=== PATIENT | female | born 1995 | race Caucasian/White ===

== ENCOUNTER 2017-12-08 20:28 | Outpatient (CLI) | payer OTHER ==
[2017-12-08] MEDS ORDERED: LACTATED RINGERS 1,000 ML IV SCH (21:00)
[2017-12-08 21:09] VITALS: BP 121/57; PULSE 81; RESP 16; TEMP 96.1
[2017-12-08 21:09] LABS: Amorphous Sediment,Urine Rare /hpf; Appearance,Urine Cloudy (Clear); Bacteria,Urine Moderate /hpf; Bilirubin,Urine Negative (Negative); Blood,Urine Negative (Negative); Calcium Oxalate Crystals,Urine Occasional /hpf; Color,Urine Yellow; Glucose,Urine (UA) Negative (Negative); Ketones,Urine 3+ (Negative); Leukocyte Esterase,Urine Trace (Negative); Mucus,Urine Many /hpf; Nitrite,Urine Negative (Negative); Protein,Urine Trace (Negative); RBC,Urine 22 /hpf (0-5); Specific Gravity,Urine 1.023 (1.001-1.035); Squamous Epithelial Cell,Urine 8 /hpf (0-4); Urobilinogen,Urine <2.0 mg/dL (<2.0); WBC,Urine 10 /hpf (0-5)
[2017-12-08] MEDS ORDERED: ceFAZolin 1,000 MG in DEXTROSE/WATER 1 50ML.BAG IVPB STA (21:25)
[2017-12-08] MEDS ORDERED: CLINDAMYCIN 600 MG in DEXTROSE 5% IN WATER 50 ML IVPB STA ×2 (21:31)
[2017-12-08] MEDS ORDERED: NITROFURANTOIN MONOHYD/M-CRYST 100 MG CAP PO STA (21:41)
--- NOTE | 2017-12-10 08:05 | P.MSEPDOC ---
Presenting Problems - Arrival Data Date of Arrival on Unit: 12/08/17 Time of Arrival on Unit: 20:28 Mode of Transport: Ambulatory - Complaint OB-Reason for Admission/Chief Complaint: Acute Nausea/Vomiting Medical History - Information : 1 Para: 0 Term: 0 : 0 Abortions: Spontaneous or Elective: 0 Number of Living Children: 0 - Gestational Age Gestational Age by EVELYN (wks/days): 24 Weeks and 1 Days Review of Systems - Review of Systems Constitutional: No problems Breast: No problems ENT: No problems Cardiovascular: No problems Respiratory: No problems Gastrointestinal: Diarrhea Genitourinary: No problems Musculoskeletal: No problems Neurological: No problems Skin: No problems Vital Signs - Temperature Temperature: 96.1 F Temperature Source: Temporal Artery Scan - Pulse Right Brachial Pulse Rate: 81 Pulse Assessment Method: Automatic Cuff - Respirations Respiratory Rate: 16 Oxygen Delivery Method: Room Air - Blood Pressure Right Arm Blood Pressure: 121/57 Blood Pressure Mean: 78 Blood Pressure Source: Automatic Cuff Medical Screen Scoring (Pre) - Cervical Exam Dilation: Exam Deferred Effacement: Exam Deferred Membranes: Intact - Uterine Contractions Frequency: N/A Duration: N/A Intensity: N/A - Maternal Vital Signs Maternal Temperature: N/A Maternal Blood Pressure: N/A Signs of Preeclampsia: N/A - Pain Assessment Pain Location and Character: Right, Lower, Abdomen Pain Scale Used: Numeric (1 - 10) Pain Intensity: 3 Pain Description: Cramping Pain Frequency: Intermittent Pain Duration Units: Minutes Pain Behavior: None Exhibited - Maternal Trauma Maternal Trauma: N/A - Assessment Baseline FHR: 150 Heart Rate - NICHD Category: Category I (Normal) = 0 NST: Reactive Position: N/A Station: N/A - Total Score Total Score (Pre): 0 - Level of Risk Level of Risk: Low (0-5) Physician Notification (Pre) - Physician Notified Physician Notified Date: 12/08/17 Physician Notified Time: 21:43 Spoke With: Dr. Couch - Notification Comment Comment: Orders recieved to administer 100 mg macrobid tablet and to d/c pt to home. Disposition - Disposition OB Disposition: Discharge to home Discharge Date: 12/08/17 Discharge Time: 21:58 I agree with the RN Medical Screening Exam: Yes Risk & Benefit of care provided described in d/c instruction: Yes Diagnosis: RELATED CONDITIONS, UNSPECIFIED, SECOND TRIMESTER
== END 2017-12-08 21:59 | disposition home or self-care (01) ==
LOC: FBPOP 20:28
PROVIDERS: ATTEND Obstetrics & Gynecology
DX: O21.2 Late vomiting of pregnancy (principal); Z3A.24 24 weeks gestation of pregnancy
CPT/HCPCS: 81001; 96360; 99214

== ENCOUNTER 2018-03-10 15:25 | Inpatient (IN) | payer OTHER ==
[2018-03-10] MEDS ORDERED: DINOPROSTONE 10 MG INSERT.ER VAGINAL ONE (16:35)
[2018-03-10 16:39] VITALS: BMI 21.9
--- NOTE | 2018-03-10 16:59 | P.HPOB ---
History of Present Illness H&P Date: 03/10/18 Chief Complaint: Intrauterine at term: Oligohydramnios Patient is a 24 to at 37 weeks gestation who arrives to labor and delivery for Cervidil ripening and induction of labor due to oligohydramnios. She's had low amniotic fluid now for several weeks and was seen by maternal- medicine. Her YEIMI is now less than 5 and her baby is measuring small for dates. Out of abundance of caution will plan induction of labor for same. Risks/benefits alternatives to induction of labor and Cervidil ripening discussed with the patient in detail and she is aware of increased risk for C- section with this type procedure as well as possible need for emergent section. All the questions were answered for her and her this time. She had no other gross problems with the and as a transfer to [facility]. She has a category 1 tracing now and had a category 1 tracing in the office with a reactive nonstress test. Her Precis course otherwise was generally unremarkable. Assessment intrauterine at term. Unripened cervix. Plan Cervidil ripening with induction in a.m. Past Medical History Past Medical History: No Reported History Additional Past Medical History / Comment(s): joint pain since may, kidney stones History of Any Multi-Drug Resistant Organisms: None Reported Past Surgical History: Orthopedic Surgery Additional Past Surgical History / Comment(s): arthroscopy both knees, cystoscopy Past Anesthesia/Blood Transfusion Reactions: No Reported Reaction Past Psychological History: Anxiety Smoking Status: Never smoker Past Alcohol Use History: Rare Additional Past Alcohol Use History / Comment(s): has smoked occasionally for 3 yrs. Past Drug Use History: Marijuana Additional Drug Use History / Comment(s): occasional use couple times per week - Past Family History Mother Family Medical History: Hypertension Medications and Allergies Home Medications Medication Instructions Recorded Confirmed Type Pnv No.95/Ferrous Fum/Folic AC 1 tab PO ONCE 12/08/17 03/10/18 History [ Multivitamin Tablet] Allergies Allergy/AdvReac Type Severity Reaction Status Date / Time cefazolin [From Kefzol] Allergy Swelling Verified 03/10/18 16:34 Exam Osteopathic Statement: *. No significant issues noted on an osteopathic structural exam other than those noted in the History and Physical/Consult. Vital Signs Temp Pulse Resp BP Pulse Ox 03/10/18 16:37 97.2 F L 97 16 129/75 98 Intake and Output 03/10/18 03/10/18 03/10/18 06:59 14:59 22:59 Other: Weight 63.503 kg - OBG Physical Exam Breast: both: normal (no masses) Abdomen: bowel sounds normal, no diffuse tenderness, no bruit present, no guarding noted, no hepatomegaly, no splenomegaly, no mass Vulva: both: normal Vagina: normal moisture, no discharge Cervix: no lesion, no discharge Uterus: normal size, normal contour Adnexa: both: normal Anus/Rectum: normal perianal skin, no rectal mass, no hemorrhoids, heme negative
[2018-03-10] MEDS ORDERED: TERBUTALINE 1 MG/ML VIAL SQ PRN (22:12)
[2018-03-10] MEDS ORDERED: OXYTOCIN 20 UNITS/1000 ML NS 1,000 ML IV SCH (22:12)
[2018-03-10] MEDS ORDERED: METHYLERGONOVINE 0.2 MG/ML 1 ML AMP IM PRN (22:12)
[2018-03-10] MEDS ORDERED: LIDOCAINE 0.5% (PF) 5 MG/ML (50 ML SDV) SQ PRN (22:12)
[2018-03-10] MEDS ORDERED: CARBOPROST TROMETHAMINE 250 MCG/ML 1 ML AMP IM PRN (22:12)
[2018-03-10] MEDS ORDERED: OXYTOCIN 10 UNIT/ML 1 ML VIAL IM PRN (22:12)
[2018-03-10] MEDS: BUTORPHANOL 1 MG/ML 1 ML VIAL IV PRN (22:42)
[2018-03-10 23:01] LABS: Basophils % (A) 0 %; Eosinophils # (A) 0.1 k/uL (0-0.7); Eosinophils % (A) 1 %; HCT 34.9 % (34.0-46.0); HGB 12.4 gm/dL (11.4-16.0); Lymphocytes # (A) 1.6 k/uL (1.0-4.8); Lymphocytes % (A) 24 %; MCH 31.9 pg (25.0-35.0); MCHC 35.6 g/dL (31.0-37.0); MCV 89.5 fL (80.0-100.0); Mean Platelet Volume 8.9; Monocytes # (A) 0.5 k/uL (0-1.0); Monocytes % (A) 8 %; Neutrophils # (A) 4.2 k/uL (1.3-7.7); Neutrophils % (A) 64 %; Platelet Count 181 k/uL (150-450); RDW 12.7 % (11.5-15.5); WBC 6.6 k/uL (3.8-10.6)
[2018-03-11] MEDS: BUTORPHANOL 1 MG/ML 1 ML VIAL IV PRN ×2 (02:06→08:23)
[2018-03-11] MEDS: LACTATED RINGERS 1,000 ML IV SCH ×3 (09:59→21:13)
[2018-03-11] MEDS ORDERED: ROPIVACAINE 100 MG, fentaNYL (PF) 200 MCG in SODIUM CHLORIDE 0.9% 76 ML EPIDURAL ONE (12:19)
[2018-03-11] MEDS ORDERED: SIMETHICONE 80 MG CHEWABLE PO PRN (13:32)
[2018-03-11] MEDS ORDERED: WITCH HAZEL 1 EACH MED..PAD TOPICAL PRN (13:32)
[2018-03-11] MEDS ORDERED: diphenhydrAMINE 50 MG CAP PO PRN (13:32)
[2018-03-11] MEDS ORDERED: ZOLPIDEM 5 MG TAB PO PRN (13:32)
[2018-03-11] MEDS ORDERED: LANOLIN CREAM 5 GM TUBE TOPICAL PRN (13:32)
[2018-03-11] MEDS ORDERED: BENZOCAINE/MENTHOL SPRAY 1 GM/SPRAY AEROSOL TOPICAL PRN (13:32)
[2018-03-11] MEDS ORDERED: MEASLES-MUMPS-RUBELLA VACC/PF 12,500 UNIT/0.5 ML VIAL SQ ONE (13:32)
[2018-03-11] MEDS ORDERED: diphenhydrAMINE 25 MG CAP PO PRN (13:32)
[2018-03-11] MEDS ORDERED: diphenhydrAMINE 50 MG/ML 1 ML VIAL IVP PRN ×2 (13:32)
[2018-03-11] MEDS ORDERED: HYDROCORTISONE 2.5% RECTAL CREAM 30 GM TUBE RECTAL PRN (13:32)
--- NOTE | 2018-03-11 13:34 | P.PROBDLV ---
Vaginal Delivery Note - . Vaginal Delivery Note: Patient progressed complete and pushed with spontaneous vaginal delivery of a viable female over an intact perineum. Falling deliver the head from essentially right occiput transverse or right occiput anterior asynclitic, the anterior posterior shoulders were easily delivered with gentle downward upper traction followed by the remainder the baby. Mouth nares were then bulb suctioned and baby was placed mother's abdomen where the umbilical cord was allowed to pulsate for approximately 45 seconds prior to clamping and cutting. Nursery personnel was present to assume care. Placenta was then delivered intact and Pitocin was added to the IV. Inspection of the vagina revealed a right labial laceration which was repaired with 3-0 Vicryl in a running fashion following 1% Xylocaine for analgesia. scores were 7 and 9 at one and 5 minutes Tony and weight was 5 lbs. 6 oz. both mother and baby are stable following delivery.
[2018-03-11] MEDS: IBUPROFEN 600 MG TAB PO PRN (19:03)
[2018-03-11] MEDS: ACETAMINOPHEN TAB 325 MG TAB PO PRN (23:59)
[2018-03-11] MEDS: SENNOSIDES-DOCUSATE SODIUM 1 EACH TAB PO SCH (23:59)
[2018-03-12] MEDS: IBUPROFEN 600 MG TAB PO PRN ×2 (08:25→15:17)
[2018-03-12] MEDS: SENNOSIDES-DOCUSATE SODIUM 1 EACH TAB PO SCH ×2 (08:26→22:59)
[2018-03-12 08:51] LABS: Basophils % (A) 0 %; Eosinophils # (A) 0.1 k/uL (0-0.7); Eosinophils % (A) 1 %; HCT 34.8 % (34.0-46.0); HGB 11.8 gm/dL (11.4-16.0); Lymphocytes # (A) 1.8 k/uL (1.0-4.8); Lymphocytes % (A) 20 %; MCH 31.1 pg (25.0-35.0); MCHC 33.9 g/dL (31.0-37.0); MCV 91.7 fL (80.0-100.0); Mean Platelet Volume 9.1; Monocytes # (A) 0.6 k/uL (0-1.0); Monocytes % (A) 6 %; Neutrophils # (A) 6.4 k/uL (1.3-7.7); Neutrophils % (A) 70 %; Platelet Count 176 k/uL (150-450); RDW 12.9 % (11.5-15.5); WBC 9.1 k/uL (3.8-10.6)
--- NOTE | 2018-03-12 11:12 | P.PNOBGVD ---
Subjective - Subjective Principal diagnosis: post day 1 Interval history: Doing very well. She is ambulating, voiding and she is tolerating her diet. She voices no complaint. Patient reports: Reports appetite normal : doing well Objective - Latest Vital Signs Latest vital signs: Vital Signs Temp Pulse Resp BP 03/12/18 08:00 98.1 F 71 16 113/69 03/12/18 00:00 98.5 F 64 14 117/53 03/11/18 20:00 98.5 F 68 16 125/72 03/11/18 15:30 97.5 F L 74 15 126/60 03/11/18 15:00 83 16 119/56 03/11/18 14:30 76 16 154/70 03/11/18 14:15 76 16 121/64 03/11/18 14:00 87 15 113/61 03/11/18 13:45 81 15 108/63 03/11/18 13:30 97.5 F L 94 15 117/63 Intake and Output 03/11/18 03/12/18 03/12/18 22:59 06:59 14:59 Other: # Voids 1 - Exam Lungs: bilateral: normal Chest: Normal S1, Normal S2 Extremities: Present: normal Abdomen: Present: normal appearance, soft Uterus: Present: normal, firm
[2018-03-12] MEDS: ACETAMINOPHEN TAB 325 MG TAB PO PRN (20:18)
[2018-03-13] MEDS: IBUPROFEN 600 MG TAB PO PRN (08:00)
[2018-03-13] MEDS: SENNOSIDES-DOCUSATE SODIUM 1 EACH TAB PO SCH (08:03)
[2018-03-13 09:06] VITALS: BP 117/69; PULSE 60; RESP 18; TEMP 98.3
--- NOTE | 2018-03-13 09:15 | P.DS ---
Providers Date of admission: 03/10/18 16:23 Expected date of discharge: 03/13/18 Attending physician: Jose David Couch Primary care physician: Stated None Hospital Course: Patient is doing very well day 2. She is ambulating, voiding, and she is tolerating her diet. She voices no complaints. Vital signs are stable and afebrile. Heart regular, lungs clear, extremities are without pain. Abdomen soft uterus is firm and lochia is reported be light. Assessment day 2. Plan discharged home follow up with me in 6 weeks. Discharge instructions were thoroughly reviewed and all questions were answered for her prior to her discharge. Patient Condition at Discharge: Good Plan - Discharge Summary Discharge Rx Participant: No New Discharge Prescriptions: No Action Pnv No.95/Ferrous Fum/Folic AC [ Multivitamin Tablet] 1 tab PO ONCE Discharge Medication List Pnv No.95/Ferrous Fum/Folic AC [ Multivitamin Tablet] 1 tab PO ONCE 09/20 [History] Follow up Appointment(s)/Referral(s): Jose David Couch DO [Doctor of Osteopathic Medicine] - 6 Weeks Activity/Diet/Wound Care/Special Instructions: No heavy lifting, limit stairs and driving, and pelvic rest. If any high temperatures, heavy bleeding, or severe pain call my office Discharge Disposition: HOME SELF-CARE
== END 2018-03-13 11:16 | disposition home or self-care (01) | DRG 807 ==
LOC: 4FBP 16:23
PROVIDERS: ADMIT Obstetrics & Gynecology; ATTEND Obstetrics & Gynecology
PROC: 10E0XZZ Delivery of Products of Conception, External Approach (ICD-10-PCS; principal; 2018-03-11)
PROC: 0HQ9XZZ Repair Perineum Skin, External Approach (ICD-10-PCS; 2018-03-11)
PROC: 00HU33Z Insertion of Infusion Device into Spinal Canal, Percutaneous Approach (ICD-10-PCS; 2018-03-11)
PROC: 3E0R3BZ Introduction of Anesthetic Agent into Spinal Canal, Percutaneous Approach (ICD-10-PCS; 2018-03-11)
PROC: 3E033VJ Introduction of Other Hormone into Peripheral Vein, Percutaneous Approach (ICD-10-PCS; 2018-03-11)
PROC: 10907ZC Drainage of Amniotic Fluid, Therapeutic from Products of Conception, Via Natural or Artificial Opening (ICD-10-PCS; 2018-03-11)
DX: O41.03X0 Oligohydramnios, third trimester, not applicable or unspecified (principal); Z37.0 Single live birth; O36.5930 Maternal care for other known or suspected poor fetal growth, third trimester, not applicable or unspecified; O70.0 First degree perineal laceration during delivery; O99.344 Other mental disorders complicating childbirth; F41.9 Anxiety disorder, unspecified; Z3A.37 37 weeks gestation of pregnancy; Z87.442 Personal history of urinary calculi; Z88.1 Allergy status to other antibiotic agents; Z82.49 Family history of ischemic heart disease and other diseases of the circulatory system
CPT/HCPCS: 85025; 86850; 86900; 86901; 88307

== ENCOUNTER 2020-10-30 15:22 | Emergency (ER) | payer OTHER ==
[2020-10-30 15:31] VITALS: TEMP 98.4
[2020-10-30] MEDS ORDERED: SODIUM CHLORIDE 0.9% 1,000 ML IV STA (15:33)
[2020-10-30] MEDS ORDERED: ADENOSINE 3 MG/ML 2 ML VIAL IVP STA (15:48)
[2020-10-30] MEDS ORDERED: MIDAZOLAM 1 MG/ML 5 ML VIAL IV STA (15:48)
[2020-10-30 16:06] VITALS: RESP 18
[2020-10-30 16:14] LABS: Basophils # (A) 0.1 k/uL (0-0.2); Basophils % (A) 1 %; Eosinophils # (A) 0.1 k/uL (0-0.7); Eosinophils % (A) 1 %; HCT 42.4 % (34.0-46.0); HGB 14.8 gm/dL (11.4-16.0); Lymphocytes # (A) 2.7 k/uL (1.0-4.8); Lymphocytes % (A) 42 %; MCH 31.2 pg (25.0-35.0); MCV 89.1 fL (80.0-100.0); Mean Platelet Volume 10.2; Monocytes # (A) 0.4 k/uL (0-1.0); Monocytes % (A) 7 %; Neutrophils # (A) 3.1 k/uL (1.3-7.7); Neutrophils % (A) 47 %; Platelet Count 186 k/uL (150-450); RBC 4.76 m/uL (3.80-5.40); RDW 12.3 % (11.5-15.5); WBC 6.5 k/uL (3.8-10.6)
[2020-10-30 16:24] LABS: Partial Thromboplastin Time 24.4 sec (22.0-30.0); Prothrombin Time 10.4 sec (9.0-12.0)
[2020-10-30 16:26] LABS: Appearance,Urine Clear (Clear); Bilirubin,Urine Negative (Negative); Blood,Urine Negative (Negative); Color,Urine Light Yellow; Glucose,Urine (UA) Negative (Negative); Ketones,Urine Negative (Negative); Leukocyte Esterase,Urine Negative (Negative); Nitrite,Urine Negative (Negative); PH, Urine 6.5 (5.0-8.0); Protein,Urine Negative (Negative); Specific Gravity,Urine 1.007 (1.001-1.035); Urobilinogen,Urine <2.0 mg/dL (<2.0)
[2020-10-30 16:27] LABS: ALT 15 U/L (4-34); AST 22 U/L (14-36); African American GFR (CKD) >90 (>60 ml/min/1.73 sqM); Albumin 4.4 g/dL (3.5-5.0); Alkaline Phosphatase 40 U/L (38-126); Anion Gap 7 mmol/L; Blood Urea Nitrogen 12 mg/dL (7-17); Calcium 9.6 mg/dL (8.4-10.2); Carbon Dioxide 25 mmol/L (22-30); Chloride 109 mmol/L (98-107); Glucose 108 mg/dL (74-99); Non-African American GFR(CKD) >90 (>60 ml/min/1.73 sqM); Potassium 3.7 mmol/L (3.5-5.1); Sodium 141 mmol/L (137-145); Total Bilirubin 0.4 mg/dL (0.2-1.3); Total Protein 7.1 g/dL (6.3-8.2)
[2020-10-30 16:43] LABS: Amphetamine Screen,Urine Detected (NotDetected); Barbiturate Screen,Urine Not Detected (NotDetected); Benzodiazepines Screen,Urine Not Detected (NotDetected); Cocaine Screen,Urine Not Detected (NotDetected); Methadone Screen, Urine Not Detected (NotDetected); Opiate Screen,Urine Not Detected (NotDetected); Oxycodone Screen, Urine Not Detected (NotDetected); Phencyclidine Screen,Urine Not Detected (NotDetected); Tricyclic Antidepressant,Urine Not Detected (NotDetected); Urn Cannabinoid Scrn Detected (NotDetected)
--- NOTE | 2020-10-30 16:58 | XR ---
EXAMINATION TYPE: XR chest 2V DATE OF EXAM: 10/30/2020 COMPARISON: 07/01/2014 HISTORY: Tachycardia TECHNIQUE: 2 views FINDINGS: Heart and mediastinum are normal. Lungs are clear. Diaphragm is normal. Bony thorax is inta ct. Pulmonary vascularity is normal. IMPRESSION: Normal chest. No change.
[2020-10-30 17:01] VITALS: BP 100/64; PULSE 68
--- NOTE | 2020-10-30 17:02 | ED ---
Arrhythmia/Palpitations HPI - General Chief Complaint: Arrhythmia/Palpitations Stated Complaint: High HR Time Seen by Provider: 10/30/20 15:33 Source: patient Mode of arrival: ambulatory Limitations: no limitations - History of Present Illness Initial Comments: Bailey is a previously healthy 25-year-old female who presents to the emergency department stay with palpitations report that her heart rate was in the high 180s to 190s for the past 40-45 minutes. She reports that she had COVID-19 in July, while she had it she had an episode of a heart rate of 100 9210 and lasted 7 minutes but then went away. Today she was just relaxing when her heart began racing, this persisted for over 30 minutes at which time she decided to come to the emergency department. She denies any pain or shortness of breath. Patient is prescribed Adderall but did not take it today and she doesn't have to work. She has no previous cardiac or pulmonary history. No history of DVT or PE. No known family history of cardiac issues. - Related Data Home Medications Medication Instructions Recorded Confirmed Dextroamphetamine/Amphetamine 10 mg PO DAILY 10/30/20 10/30/20 [Adderall Xr] Falmina 1 tab PO DAILY 10/30/20 10/30/20 Ibuprofen [Motrin Ib] 600 mg PO Q8H PRN 10/30/20 10/30/20 Previous Rx's Medication Instructions Recorded Verapamil HCl [Verapamil ER] 120 mg PO DAILY #28 tablet.er 10/30/20 Allergies Allergy/AdvReac Type Severity Reaction Status Date / Time cefazolin [From Kefzol] Allergy Swelling Verified 10/30/20 16:34 Review of Systems ROS Statement: Those systems with pertinent positive or pertinent negative responses have been documented in the HPI. ROS Other: All systems not noted in ROS Statement are negative. Past Medical History Past Medical History: No Reported History Additional Past Medical History / Comment(s): joint pain since may, kidney stones History of Any Multi-Drug Resistant Organisms: None Reported Past Surgical History: Orthopedic Surgery Additional Past Surgical History / Comment(s): arthroscopy both knees, cystoscopy Past Anesthesia/Blood Transfusion Reactions: No Reported Reaction Past Psychological History: Anxiety Smoking Status: Never smoker Past Alcohol Use History: Rare Past Drug Use History: Marijuana - Past Family History Mother Family Medical History: Hypertension General Exam - General Exam Comments Initial Comments: Physical Exam GENERAL: Patient is well-developed and well-nourished. Patient is nontoxic and well-hydrated and is in no distress. HENT: Normocephalic, Atraumatic. EYES: PERRL, EOMI PULMONARY: Unlabored respirations. No audible rales rhonchi or wheezing was noted. CARDIOVASCULAR: Tachycardic, regular ABDOMEN: Soft and nontender with normal bowel sounds. SKIN: Skin is clear with no lesions or rashes and otherwise unremarkable. : Deferred NEUROLOGIC: Patient is alert and oriented x3. Moving all extremities spontaneously MUSCULOSKELETAL: Normal extremities with adequate strength and full range of motion. No lower extremity swelling or edema. No calf tenderness. PSYCHIATRIC: Normal psychiatric evaluation. Limitations: no limitations Course Vital Signs 10/30/20 10/30/20 10/30/20 15:29 16:03 16:56 Temperature 98.4 F Pulse Rate 198 H 90 68 Respiratory 16 18 18 Rate Blood Pressure 113/60 116/72 100/64 O2 Sat by Pulse 100 100 100 Oximetry EKG Findings - EKG Comments: EKG Findings:: Initial EKG was obtained due to tachycardia, initial EKG was obtained at 1541, rate is 180 rhythm is a narrow complex regular tachycardia, no delta waves present, this is consistent with a SVT. Repeat EKG was obtained after conversion, repeat EKG obtained at 1602, repeat is 97 rhythm is sinus there is a normal axis, normal intervals, W[place] 1.2, QRS 84, QTC [address] elevations or depressions no evidence of ischemia or infarction. 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 Guadarrama who recommends verapamil 120 mg extended release daily, Colace as needed for constipation, discontinue Adderall follow-up this week in office This plan was discussed with the patient and her at bedside were agreeable patient was discharged home in stable condition. - Lab Data Result diagrams: 10/30/20 15:47 10/30/20 15:47 Lab Results 10/30/20 10/30/20 10/30/20 Range/Units 15:47 15:47 15:47 WBC 6.5 (3.8-10.6) k/uL RBC 4.76 (3.80-5.40) m/uL Hgb 14.8 (11.4-16.0) gm/dL Hct 42.4 (34.0-46.0) % MCV 89.1 (80.0-100.0) fL MCH 31.2 (25.0-35.0) pg MCHC 35.0 (31.0-37.0) g/dL RDW 12.3 (11.5-15.5) % Plt Count 186 (150-450) k/uL MPV 10.2 Neutrophils % 47 % Lymphocytes % 42 % Monocytes % 7 % Eosinophils % 1 % Basophils % 1 % Neutrophils # 3.1 (1.3-7.7) k/uL Lymphocytes # 2.7 (1.0-4.8) k/uL Monocytes # 0.4 (0-1.0) k/uL Eosinophils # 0.1 (0-0.7) k/uL Basophils # 0.1 (0-0.2) k/uL PT 10.4 (9.0-12.0) sec INR 1.0 (<1.2) APTT 24.4 (22.0-30.0) sec Sodium 141 (137-145) mmol/L Potassium 3.7 (3.5-5.1) mmol/L Chloride 109 H (98-107) mmol/L Carbon Dioxide 25 (22-30) mmol/L Anion Gap 7 mmol/L BUN 12 (7-17) mg/dL Creatinine 0.60 (0.52-1.04) mg/dL Est GFR (CKD-EPI)AfAm >90 (>60 ml/min/1.73 sqM) Est GFR (CKD-EPI)NonAf >90 (>60 ml/min/1.73 sqM) Glucose 108 H (74-99) mg/dL Calcium 9.6 (8.4-10.2) mg/dL Magnesium 2.0 (1.6-2.3) mg/dL Total Bilirubin 0.4 (0.2-1.3) mg/dL AST 22 (14-36) U/L ALT 15 (4-34) U/L Alkaline Phosphatase 40 (38-126) U/L Troponin I (0.000-0.034) ng/mL Total Protein 7.1 (6.3-8.2) g/dL Albumin 4.4 (3.5-5.0) g/dL TSH 0.743 (0.465-4.680) mIU/L Urine Color Urine Appearance (Clear) Urine pH (5.0-8.0) Ur Specific [place] (1.001-1.035) Urine Protein (Negative) Urine Glucose (UA) (Negative) Urine Ketones (Negative) Urine Blood (Negative) Urine Nitrite (Negative) Urine Bilirubin (Negative) Urine Urobilinogen (<2.0) mg/dL Ur Leukocyte Esterase (Negative) Urine Opiates Screen (NotDetected) Ur Oxycodone Screen (NotDetected) Urine Methadone Screen (NotDetected) Ur Propoxyphene Screen (NotDetected) Ur Barbiturates Screen (NotDetected) U Tricyclic Antidepress (NotDetected) Ur Phencyclidine Scrn (NotDetected) Ur Amphetamines Screen (NotDetected) U Methamphetamines Scrn (NotDetected) U Benzodiazepines Scrn (NotDetected) Urine Cocaine Screen (NotDetected) U Marijuana (THC) Screen (NotDetected) 10/30/20 10/30/20 Range/Units 15:47 16:19 WBC (3.8-10.6) k/uL RBC (3.80-5.40) m/uL Hgb (11.4-16.0) gm/dL Hct (34.0-46.0) % MCV (80.0-100.0) fL MCH (25.0-35.0) pg MCHC (31.0-37.0) g/dL RDW (11.5-15.5) % Plt Count (150-450) k/uL MPV Neutrophils % % Lymphocytes % % Monocytes % % Eosinophils % % Basophils % % Neutrophils # (1.3-7.7) k/uL Lymphocytes # (1.0-4.8) k/uL Monocytes # (0-1.0) k/uL Eosinophils # (0-0.7) k/uL Basophils # (0-0.2) k/uL PT (9.0-12.0) sec INR (<1.2) APTT (22.0-30.0) sec Sodium (137-145) mmol/L Potassium (3.5-5.1) mmol/L Chloride (98-107) mmol/L Carbon Dioxide (22-30) mmol/L Anion Gap mmol/L BUN (7-17) mg/dL Creatinine (0.52-1.04) mg/dL Est GFR (CKD-EPI)AfAm (>60 ml/min/1.73 sqM) Est GFR (CKD-EPI)NonAf (>60 ml/min/1.73 sqM) Glucose (74-99) mg/dL Calcium (8.4-10.2) mg/dL Magnesium (1.6-2.3) mg/dL Total Bilirubin (0.2-1.3) mg/dL AST (14-36) U/L ALT (4-34) U/L Alkaline Phosphatase (38-126) U/L Troponin I <0.012 (0.000-0.034) ng/mL Total Protein (6.3-8.2) g/dL Albumin (3.5-5.0) g/dL TSH (0.465-4.680) mIU/L Urine Color Light Yellow Urine Appearance Clear (Clear) Urine pH 6.5 (5.0-8.0) Ur Specific [place] 1.007 (1.001-1.035) Urine Protein Negative (Negative) Urine Glucose (UA) Negative (Negative) Urine Ketones Negative (Negative) Urine Blood Negative (Negative) Urine Nitrite Negative (Negative) Urine Bilirubin Negative (Negative) Urine Urobilinogen <2.0 (<2.0) mg/dL Ur Leukocyte Esterase Negative (Negative) Urine Opiates Screen Not Detected (NotDetected) Ur Oxycodone Screen Not Detected (NotDetected) Urine Methadone Screen Not Detected (NotDetected) Ur Propoxyphene Screen Not Detected (NotDetected) Ur Barbiturates Screen Not Detected (NotDetected) U Tricyclic Antidepress Not Detected (NotDetected) Ur Phencyclidine Scrn Not Detected (NotDetected) Ur Amphetamines Screen Detected H (NotDetected) U Methamphetamines Scrn Not Detected (NotDetected) U Benzodiazepines Scrn Not Detected (NotDetected) Urine Cocaine Screen Not Detected (NotDetected) U Marijuana (THC) Screen Detected H (NotDetected) Disposition Clinical Impression: SVT (supraventricular tachycardia) Disposition: HOME SELF-CARE Condition: Stable Instructions (If sedation given, give patient instructions): Supraventricular Tachycardia (ED) Prescriptions: Verapamil HCl [Verapamil ER] 120 mg PO DAILY #28 tablet.er Is patient prescribed a controlled substance at d/c from ED?: No Referrals: Terrell Mckinnon MD [Primary Care Provider] - 1-2 days Alpa Guadarrama MD [STAFF PHYSICIAN] - 1-2 days
[2020-10-30] MEDS ORDERED: VERAPAMIL SR 120 MG TABLET.ER PO STA (17:24)
== END 2020-10-30 18:00 | disposition home or self-care (01) ==
LOC: EC 15:22
DX: I47.1 Supraventricular tachycardia (principal); F41.9 Anxiety disorder, unspecified; F12.90 Cannabis use, unspecified, uncomplicated; Z87.442 Personal history of urinary calculi; Z86.16 Personal history of COVID-19; Z79.1 Long term (current) use of non-steroidal anti-inflammatories (NSAID); Z88.1 Allergy status to other antibiotic agents
CPT/HCPCS: 36415; 93005; 80053; 83735; 84443; 84484; 85025; 85610; 85730; 81003; 80306; 71046; 99285; 96374; 96375; J2250; J0153

== ENCOUNTER 2020-11-15 15:55 | Emergency (ER) | payer OTHER ==
--- NOTE | 2020-11-15 16:32 | ED ---
General Adult HPI - General Chief complaint: Dizziness Stated complaint: Facial Numbness/Nausea/Dizziness Time Seen by Provider: 11/15/20 16:05 Source: patient, family, RN notes reviewed, old records reviewed Mode of arrival: wheelchair Limitations: no limitations - History of Present Illness Initial comments: This is a 25-year-old female who presents emergency Department complaining that she has some tingling around her mouth and tingling both of her hands. Patient states she was recently diagnosed with SVT and she is put on verapamil yesterday she was started also on metoprolol. Patient states she's had no episodes of SVT since the last time she was in the emergency department. Patient states she preferred not to be in any medications. Patient denies any drug use though she is on Adderall. Patient denies any chest pain or palpitations. Patient states she does have a mild headache. Patient denies any recent fever chills or cough per patient denies abdominal pain patient has nausea vomiting diarrhea. - Related Data Home Medications Medication Instructions Recorded Confirmed Falmina 1 tab PO DAILY 10/30/20 11/15/20 Ibuprofen [Motrin Ib] 600 mg PO Q8H PRN 10/30/20 11/15/20 Albuterol Sulfate [Proair Hfa] 2 puff INHALATION RT-Q4H PRN 11/15/20 11/15/20 Aluminum Chloride [Drysol] 1 applicate TOPICAL DAILY 11/15/20 11/15/20 Atomoxetine HCl See Taper PO DIRECTED 11/15/20 11/15/20 Metoprolol Succinate (ER) [Toprol 25 mg PO DAILY 11/15/20 11/15/20 Xl] Previous Rx's Medication Instructions Recorded Verapamil HCl [Verapamil ER] 120 mg PO DAILY #28 tablet.er 10/30/20 Allergies Allergy/AdvReac Type Severity Reaction Status Date / Time cefazolin [From Kefzol] Allergy Swelling Verified 11/15/20 16:56 Review of Systems ROS Statement: Those systems with pertinent positive or pertinent negative responses have been documented in the HPI. ROS Other: All systems not noted in ROS Statement are negative. Past Medical History Past Medical History: No Reported History Additional Past Medical History / Comment(s): joint pain since may, kidney stones History of Any Multi-Drug Resistant Organisms: None Reported Past Surgical History: Orthopedic Surgery Additional Past Surgical History / Comment(s): arthroscopy both knees, cystoscopy Past Anesthesia/Blood Transfusion Reactions: No Reported Reaction Past Psychological History: Anxiety Smoking Status: Never smoker Past Alcohol Use History: Rare Past Drug Use History: Marijuana - Past Family History Mother Family Medical History: Hypertension General Exam - General Exam Comments Initial Comments: GENERAL: Patient is well-developed and well-nourished. Patient is nontoxic and well- hydrated and is in mild distress. ENT: Neck is soft and supple. No significant lymphadenopathy is noted. Oropharynx is clear. Moist mucous membranes. Neck has full range of motion without eliciting any pain. EYES: The sclera were anicteric and conjunctiva were pink and moist. Extraocular movements were intact and pupils were equal round and reactive to light. Eyelids were unremarkable. PULMONARY: Unlabored respirations. Good breath sounds bilaterally. No audible rales rhonchi or wheezing was noted. CARDIOVASCULAR: There is a regular rate and rhythm without any murmurs gallops or rubs. ABDOMEN: Soft and nontender with normal bowel sounds. SKIN: Skin is clear with no lesions or rashes and otherwise unremarkable. NEUROLOGIC: Patient is alert and oriented x3. Cranial nerves II through XII are grossly intact. Motor and sensory are also intact. Normal speech, volume and content. Symmetrical smile. MUSCULOSKELETAL: Normal extremities with adequate strength and full range of motion. LYMPHATICS: No significant lymphadenopathy is noted PSYCHIATRIC: Normal psychiatric evaluation. Limitations: no limitations Course Vital Signs 11/15/20 16:03 Temperature 97.9 F Pulse Rate 65 Respiratory 16 Rate Blood Pressure 99/70 O2 Sat by Pulse 100 Oximetry Medical Decision Making - Medical Decision Making I spoke with Dr. 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 Patient's EKG shows sinus bradycardia 57 bpm [place] interval is 112 QRS is 88 QT interval 446 QTC is 434 per patient's EKG shows no ST segment elevation or depre ssion. Patient is asymptomatic throughout her ED stay. - Lab Data Result diagrams: 11/15/20 16:53 11/15/20 16:53 Lab Results 11/15/20 11/15/20 Range/Units 16:53 16:53 WBC 7.8 (3.8-10.6) k/uL RBC 4.75 (3.80-5.40) m/uL Hgb 14.9 (11.4-16.0) gm/dL Hct 42.2 (34.0-46.0) % MCV 88.7 (80.0-100.0) fL MCH 31.4 (25.0-35.0) pg MCHC 35.4 (31.0-37.0) g/dL RDW 12.0 (11.5-15.5) % Plt Count 181 (150-450) k/uL MPV 9.9 Neutrophils % 60 % Lymphocytes % 31 % Monocytes % 6 % Eosinophils % 2 % Basophils % 1 % Neutrophils # 4.6 (1.3-7.7) k/uL Lymphocytes # 2.4 (1.0-4.8) k/uL Monocytes # 0.4 (0-1.0) k/uL Eosinophils # 0.1 (0-0.7) k/uL Basophils # 0.1 (0-0.2) k/uL Sodium 138 (137-145) mmol/L Potassium 3.9 (3.5-5.1) mmol/L Chloride 106 (98-107) mmol/L Carbon Dioxide 25 (22-30) mmol/L Anion Gap 7 mmol/L BUN 15 (7-17) mg/dL Creatinine 0.53 (0.52-1.04) mg/dL Est GFR (CKD-EPI)AfAm >90 (>60 ml/min/1.73 sqM) Est GFR (CKD-EPI)NonAf >90 (>60 ml/min/1.73 sqM) Glucose 99 (74-99) mg/dL Calcium 9.3 (8.4-10.2) mg/dL Magnesium 2.1 (1.6-2.3) mg/dL Total Bilirubin 0.3 (0.2-1.3) mg/dL AST 17 (14-36) U/L ALT 12 (4-34) U/L Alkaline Phosphatase 43 (38-126) U/L Total Protein 6.9 (6.3-8.2) g/dL Albumin 4.2 (3.5-5.0) g/dL Disposition Clinical Impression: History of paroxysmal supraventricular tachycardia, Adverse drug reaction Disposition: HOME SELF-CARE Instructions (If sedation given, give patient instructions): Supraventricular Tachycardia (ED) Additional Instructions: Patient should stop her metoprolol. 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 Is patient prescribed a controlled substance at d/c from ED?: No Referrals: Terrell Mckinnon MD [Primary Care Provider] - 1-2 days Time of Disposition: 17:27
[2020-11-15 17:08] LABS: Basophils # (A) 0.1 k/uL (0-0.2); Basophils % (A) 1 %; Eosinophils # (A) 0.1 k/uL (0-0.7); Eosinophils % (A) 2 %; HCT 42.2 % (34.0-46.0); HGB 14.9 gm/dL (11.4-16.0); Lymphocytes # (A) 2.4 k/uL (1.0-4.8); Lymphocytes % (A) 31 %; MCH 31.4 pg (25.0-35.0); MCHC 35.4 g/dL (31.0-37.0); MCV 88.7 fL (80.0-100.0); Mean Platelet Volume 9.9; Monocytes # (A) 0.4 k/uL (0-1.0); Monocytes % (A) 6 %; Neutrophils # (A) 4.6 k/uL (1.3-7.7); Neutrophils % (A) 60 %; Platelet Count 181 k/uL (150-450); RBC 4.75 m/uL (3.80-5.40); WBC 7.8 k/uL (3.8-10.6)
[2020-11-15 17:24] LABS: ALT 12 U/L (4-34); AST 17 U/L (14-36); African American GFR (CKD) >90 (>60 ml/min/1.73 sqM); Albumin 4.2 g/dL (3.5-5.0); Alkaline Phosphatase 43 U/L (38-126); Anion Gap 7 mmol/L; Blood Urea Nitrogen 15 mg/dL (7-17); Calcium 9.3 mg/dL (8.4-10.2); Carbon Dioxide 25 mmol/L (22-30); Chloride 106 mmol/L (98-107); Glucose 99 mg/dL (74-99); Magnesium 2.1 mg/dL (1.6-2.3); Non-African American GFR(CKD) >90 (>60 ml/min/1.73 sqM); Potassium 3.9 mmol/L (3.5-5.1); Sodium 138 mmol/L (137-145); Total Bilirubin 0.3 mg/dL (0.2-1.3); Total Protein 6.9 g/dL (6.3-8.2)
[2020-11-15 18:13] VITALS: BP 103/63; PULSE 73; RESP 18; TEMP 97
== END 2020-11-15 18:11 | disposition home or self-care (01) ==
LOC: EC 15:55
DX: R20.2 Paresthesia of skin (principal); R51.9 Headache, unspecified; R42 Dizziness and giddiness; R20.0 Anesthesia of skin; R11.0 Nausea; T50.905A Adverse effect of unspecified drugs, medicaments and biological substances, initial encounter; Z86.79 Personal history of other diseases of the circulatory system; F41.9 Anxiety disorder, unspecified; F12.90 Cannabis use, unspecified, uncomplicated; Z87.442 Personal history of urinary calculi; Z79.1 Long term (current) use of non-steroidal anti-inflammatories (NSAID); Z79.899 Other long term (current) drug therapy; Z88.1 Allergy status to other antibiotic agents
CPT/HCPCS: 36415; 80053; 83735; 85025; 93005; 99284

== ENCOUNTER 2020-11-24 09:05 | Day surgery (SDC) | payer OTHER ==
--- NOTE | 2020-11-16 17:22 | P.HPOB ---
History of Present Illness H&P Date: 11/16/20 Chief Complaint: Cervical dysplasia Patient is a 25-year-old female with BILLY-2 that is noted on endocervical sampling. She is therefore prescription for a LEEP colposcopy to fully evaluate the tissue sample. Risks/benefits alternatives to this procedure were reviewed with the patient in detail and all questions were answered for her prior to proceeding to the operative room. She is aware of these multiple real chance that this surgery could make it difficult to get or make it difficult to keep the baby in the wound but will try and minimize this risk as much as possible. Other risks including bleeding and infection were reviewed with the patient and all questions are answered for her prior to proceeding to the IP room. Past Medical History Past Medical History: No Reported History Additional Past Medical History / Comment(s): joint pain since may, kidney stones History of Any Multi-Drug Resistant Organisms: None Reported Past Surgical History: Orthopedic Surgery Additional Past Surgical History / Comment(s): arthroscopy both knees, cystoscopy Past Anesthesia/Blood Transfusion Reactions: No Reported Reaction Past Psychological History: Anxiety Past Alcohol Use History: Rare Additional Past Alcohol Use History / Comment(s): has smoked occasionally for 3 yrs. Past Drug Use History: Marijuana Additional Drug Use History / Comment(s): occasional use couple times per week - Past Family History Mother Family Medical History: Hypertension Medications and Allergies Home Medications Medication Instructions Recorded Confirmed Type Falmina 1 tab PO DAILY 10/30/20 11/15/20 History Ibuprofen [Motrin Ib] 600 mg PO Q8H PRN 10/30/20 11/15/20 History Verapamil HCl [Verapamil ER] 120 mg PO DAILY #28 tablet.er 10/30/20 11/15/20 Rx Albuterol Sulfate [Proair Hfa] 2 puff INHALATION RT-Q4H PRN 11/15/20 11/15/20 History Aluminum Chloride [Drysol] 1 applicate TOPICAL DAILY 11/15/20 11/15/20 History Atomoxetine HCl See Taper PO DIRECTED 11/15/20 11/15/20 History Metoprolol Succinate (ER) [Toprol 25 mg PO DAILY 11/15/20 11/15/20 History Xl] Allergies Allergy/AdvReac Type Severity Reaction Status Date / Time cefazolin [From Kefzol] Allergy Swelling Verified 07/13/21 16:56 Exam Osteopathic Statement: *. No significant issues noted on an osteopathic structural exam other than those noted in the History and Physical/Consult. - OBG Physical Exam Breast: both: normal (no masses) Abdomen: bowel sounds normal, no diffuse tenderness, no bruit present, no guarding noted, no hepatomegaly, no splenomegaly, no mass Vulva: both: normal Vagina: normal moisture, no discharge Cervix: no lesion, no discharge Uterus: normal size, normal contour Adnexa: both: normal Anus/Rectum: normal perianal skin, no rectal mass, no hemorrhoids, heme negative
[2020-11-22 12:07] VITALS: BMI 18.4
[~2020-11-24 09:05] MED LIST: DEXAMETHASONE SOD PHOSPHATE 4 MG/ML 1 ML VIAL IV ONE; HYDROmorphone 0.5 MG/0.5 ML SYRINGE IVP PRN; LACTATED RINGERS 1,000 ML IV SCH; ONDANSETRON 4 MG/2 ML VIAL IVP ONE; Pre Op ABX Message 1 EACH MISC MISCELLANE ONE
[2020-11-24] MEDS ORDERED: LACTATED RINGERS 1,000 ML IV ONE (09:33)
[2020-11-24] MEDS ORDERED: ONDANSETRON 4 MG/2 ML VIAL ONE (09:35)
[2020-11-24] MEDS ORDERED: LIDOCAINE 1% INJ 10MG/ML (20 ML MDV) ONE (11:13)
[2020-11-24] MEDS ORDERED: MIDAZOLAM 2 MG/2 ML VIAL ONE (11:13)
[2020-11-24] MEDS ORDERED: PROPOFOL 10 MG/ML 20 ML VIAL IV ONE (11:13)
[2020-11-24] MEDS ORDERED: fentaNYL (PF) 50 MCG/ML 2 ML AMP ONE (11:13)
[2020-11-24] MEDS ORDERED: KETOROLAC 15 MG/ML 1 ML VIAL ONE (11:13)
[2020-11-24] MEDS ORDERED: FERRIC SUBSULFATE (MONSELS) JAR TOPICAL ONE (11:14)
[2020-11-24] MEDS ORDERED: IODINE/POTASS IOD (LUGOLS) BOTTLE TOPICAL ONE (11:40)
--- NOTE | 2020-11-24 12:03 | P.OP ---
Date of Procedure: 11/24/20 Preoperative Diagnosis: Cervical dysplasia Postoperative Diagnosis: Same Procedure(s) Performed: LEEP colposcopy Anesthesia: JENN Surgeon: Jose David Couch Estimated Blood Loss (ml): 10 Pathology: other (Ectocervix/cone) Condition: stable Disposition: same day Operative Findings: Pathology pending Description of Procedure: Patient was taken to the operating suite where general anesthetic was found be adequate. She was prepped and draped in the normal sterile fashion placed in dorsal lithotomy position. Initially a coated speculum was inserted in the vagina and the anterior lip cervix was identified. Ectocervix was then coated with Lugol solution and using a 2 cm loop in 1 pass the LEEP was performed. Once the tissue was collected it was sent to pathology for evaluation. Ball- tipped cautery was then used to obtain excellent hemostasis and to desiccate any potential remaining dysplastic tissue. All instruments were then removed. Sponge, lap, needle counts were all correct 2. Patient was then taken to the recovery room in stable and satisfactory condition. Plan - Discharge Summary Discharge Rx Participant: No New Discharge Prescriptions: New Ibuprofen [Motrin] 600 mg PO Q6HR PRN #30 tab PRN Reason: Pain Acetaminophen-Codeine 300-30mg [Tylenol #3] 1 tab PO Q4H PRN #20 tablet PRN Reason: Pain No Action Falmina 1 tab PO QAM Albuterol Sulfate [Proair Hfa] 2 puff INHALATION Q4H PRN PRN Reason: Shortness Of Breath Atomoxetine HCl [Strattera] 40 mg PO QAM Aluminum Chloride [Drysol] 1 applicate TOPICAL DAILY Verapamil HCl [Verapamil ER] 120 mg PO QAM Discharge Medication List Falmina 1 tab PO QAM 10/30/20 [History] Albuterol Sulfate [Proair Hfa] 2 puff INHALATION Q4H PRN 11/15/20 [History] Aluminum Chloride [Drysol] 1 applicate TOPICAL DAILY 11/15/20 [History] Atomoxetine HCl [Strattera] 40 mg PO QAM 11/22/20 [History] Verapamil HCl [Verapamil ER] 120 mg PO QAM 11/22/20 [History] Acetaminophen-Codeine 300-30mg [Tylenol #3] 1 tab PO Q4H PRN #20 tablet 11/24/20 [Rx] Ibuprofen [Motrin] 600 mg PO Q6HR PRN #30 tab 11/24/20 [Rx] Follow up Appointment(s)/Referral(s): Jose David Couch DO [Doctor of Osteopathic Medicine] - 2 Weeks Activity/Diet/Wound Care/Special Instructions: No heavy lifting, limit stairs and driving, and pelvic rest. If any high temperatures, heavy bleeding, or severe pain call my office Discharge Disposition: HOME SELF-CARE
[2020-11-24 12:11] VITALS: TEMP 97.2
[2020-11-24] MEDS ORDERED: Acetaminophen-Codeine 300-30mg TAB ONE (12:48)
[2020-11-24] MEDS ORDERED: Acetaminophen-Codeine 300-30mg TAB PO ONE (12:51)
[2020-11-24 13:11] VITALS: RESP 18
[2020-11-24 13:21] VITALS: BP 119/67; PULSE 74
== END 2020-11-24 13:40 | disposition home or self-care (01) ==
LOC: OR 09:05
PROVIDERS: ATTEND Obstetrics & Gynecology
DX: N72 Inflammatory disease of cervix uteri (principal); A63.0 Anogenital (venereal) warts; M25.50 Pain in unspecified joint; F41.9 Anxiety disorder, unspecified; Z87.891 Personal history of nicotine dependence; Z87.442 Personal history of urinary calculi; Z82.49 Family history of ischemic heart disease and other diseases of the circulatory system; Z98.890 Other specified postprocedural states; Z79.899 Other long term (current) drug therapy
CPT/HCPCS: 81025; 88307; 57461; J2250; J1100; J2405; J2001; J3010; J1885; J2704

== ENCOUNTER 2021-01-05 16:11 | Emergency (ER) | payer OTHER ==
[2021-01-05 18:41] VITALS: RESP 18; TEMP 98.4
[2021-01-05 19:01] LABS: Appearance,Urine Clear (Clear); Bacteria,Urine Occasional /hpf; Bilirubin,Urine Negative (Negative); Blood,Urine Trace (Negative); Color,Urine Light Yellow; Glucose,Urine (UA) Negative (Negative); Ketones,Urine Negative (Negative); Leukocyte Esterase,Urine Trace (Negative); Mucus,Urine Rare /hpf; Nitrite,Urine Negative (Negative); PH, Urine 5.5 (5.0-8.0); Protein,Urine Negative (Negative); RBC,Urine 2 /hpf (0-5); Specific Gravity,Urine 1.008 (1.001-1.035); Squamous Epithelial Cell,Urine 2 /hpf (0-4); Urobilinogen,Urine <2.0 mg/dL (<2.0); WBC,Urine 2 /hpf (0-5)
[2021-01-05] MEDS ORDERED: SODIUM CHLORIDE 0.9% 1,000 ML IV ONE (19:40)
[2021-01-05] MEDS ORDERED: MORPHINE SULFATE 2 MG/ML SYRINGE IVP STA ×2 (19:40→22:12)
[2021-01-05] MEDS ORDERED: ONDANSETRON 4 MG/2 ML VIAL IVP STA (19:40)
--- NOTE | 2021-01-05 19:53 | ED ---
Abdominal Pain HPI - General Chief Complaint: Abdominal Pain Stated Complaint: Poss appendicitis Time Seen by Provider: 01/05/21 19:25 Source: patient Mode of arrival: ambulatory Limitations: no limitations - History of Present Illness Initial Comments: 25-year-old female patient presents to the emergency department today for evaluation of right lower quadrant abdominal pain with radiation to the back. Patient states symptoms started last night and woke her up a few times throughout the night. States today she has been nauseated. Denies any vomiti ng. Has been able to tolerate drinking water. Has not had any food today. She denies fever or chills. Denies any constipation or diarrhea. States she has urinated frequently over the last 3 hours. His any hematuria, dysuria, urinary urgency. Patient states she does have history of kidney stones with this feels different. Her physician since her injury rule out appendicitis. She denies any abnormal vaginal bleeding or discharge. Denies chance of . Denies any new medications. Did have a LEEP procedure about a month ago. Patient denies any recent rash, cough, shortness of breath, chest pain, back pain, numbness, tingling, dizziness, weakness, headache, visual changes, or any other complaints. - Related Data Home Medications Medication Instructions Recorded Confirmed Falmina 1 tab PO QAM 10/30/20 11/22/20 Albuterol Sulfate [Proair Hfa] 2 puff INHALATION Q4H PRN 11/15/20 11/22/20 Aluminum Chloride [Drysol] 1 applicate TOPICAL DAILY 11/15/20 11/22/20 Atomoxetine HCl [Strattera] 40 mg PO QAM 11/22/20 11/22/20 Verapamil HCl [Verapamil ER] 120 mg PO QAM 11/22/20 11/22/20 Previous Rx's Medication Instructions Recorded Acetaminophen-Codeine 300-30mg 1 tab PO Q4H PRN #20 tablet 11/24/20 [Tylenol #3] Ibuprofen [Motrin] 600 mg PO Q6HR PRN #30 tab 11/24/20 Allergies Allergy/AdvReac Type Severity Reaction Status Date / Time cephalexin [From Keflex] Allergy Swelling Verified 01/05/21 18:41 Review of Systems ROS Statement: Those systems with pertinent positive or pertinent negative responses have been documented in the HPI. ROS Other: All systems not noted in ROS Statement are negative. Past Medical History Past Medical History: No Reported History, Supraventricular Tachycardia (SVT) Additional Past Medical History / Comment(s): joint pain since may, kidney stones, SVT History of Any Multi-Drug Resistant Organisms: None Reported Past Surgical History: Cardiac Ablation Additional Past Surgical History / Comment(s): arthroscopy both knees, cystoscopy, LEEP procedure Past Anesthesia/Blood Transfusion Reactions: No Reported Reaction Past Psychological History: Anxiety Smoking Status: Never smoker Past Alcohol Use History: Rare Past Drug Use History: Marijuana - Past Family History Mother Family Medical History: Hypertension General Exam Limitations: no limitations General appearance: alert, in no apparent distress, other (This is a well- developed, well-nourished adult female patient in no acute distress. Vital signs upon presentation are temperature 98.4F, pulse 66, respirations 18, blood pressure 129/89, pulse ox 100% on room air.) ENT exam: Present: normal exam, normal oropharynx, mucous membranes moist Cardiovascular Exam: Present: regular rate, normal rhythm, normal heart sounds. Absent: systolic murmur, diastolic murmur, rubs, gallop, clicks GI/Abdominal exam: Present: soft, tenderness (Generalized, worse over the right mid abdomen), normal bowel sounds. Absent: distended, guarding, rebound, rigid Neurological exam: Present: alert, oriented X3, CN II-XII intact Psychiatric exam: Present: normal affect, normal mood Skin exam: Present: warm, dry, intact, normal color. Absent: rash Course Vital Signs 01/05/21 01/05/21 18:37 22:28 Temperature 98.4 F 98.4 F Pulse Rate 66 59 L Respiratory 18 18 Rate Blood Pressure 129/89 117/97 O2 Sat by Pulse 100 100 Oximetry Medical Decision Making - Medical Decision Making 25-year-old female patient presents to the emergency department today for evaluation of right lower quadrant abdominal pain and nausea. Physical examination did reveal tenderness over the right mid and right lower abdomen. Labs reviewed and were unremarkable. Urine is negative for , negative for infection. There is trace blood. Transvaginal ultrasound was obtained and showed no evidence for ovarian torsion or cyst. No other abnormalities. CT abdomen and pelvis was obtained and showed no acute abdomen abnormalities. I did discuss findings and results with the patient. She will be discharged to follow-up with her primary care physician for recheck in 1-2 days. Return parameters were discussed in detail. She verbalizes understanding and agrees with this plan. My attending is Dr. Dutton. - Lab Data Result diagrams: 01/05/21 19:53 01/05/21 19:53 Lab Results 01/05/21 01/05/21 01/05/21 Range/Units 18:49 18:49 19:53 WBC 7.8 (3.8-10.6) k/uL RBC 4.59 (3.80-5.40) m/uL Hgb 14.5 (11.4-16.0) gm/dL Hct 41.9 (34.0-46.0) % MCV 91.2 (80.0-100.0) fL MCH 31.6 (25.0-35.0) pg MCHC 34.6 (31.0-37.0) g/dL RDW 12.4 (11.5-15.5) % Plt Count 203 (150-450) k/uL MPV 9.7 Neutrophils % 45 % Lymphocytes % 45 % Monocytes % 5 % Eosinophils % 2 % Basophils % 0 % Neutrophils # 3.5 (1.3-7.7) k/uL Lymphocytes # 3.5 (1.0-4.8) k/uL Monocytes # 0.4 (0-1.0) k/uL Eosinophils # 0.1 (0-0.7) k/uL Basophils # 0.0 (0-0.2) k/uL Sodium (137-145) mmol/L Potassium (3.5-5.1) mmol/L Chloride (98-107) mmol/L Carbon Dioxide (22-30) mmol/L Anion Gap mmol/L BUN (7-17) mg/dL Creatinine (0.52-1.04) mg/dL Est GFR (CKD-EPI)AfAm (>60 ml/min/1.73 sqM) Est GFR (CKD-EPI)NonAf (>60 ml/min/1.73 sqM) Glucose (74-99) mg/dL Calcium (8.4-10.2) mg/dL Total Bilirubin (0.2-1.3) mg/dL AST (14-36) U/L ALT (4-34) U/L Alkaline Phosphatase (38-126) U/L C-Reactive Protein (<1.0) mg/dL Total Protein (6.3-8.2) g/dL Albumin (3.5-5.0) g/dL Urine Color Light Yellow Urine Appearance Clear (Clear) Urine pH 5.5 (5.0-8.0) Ur Specific [place] 1.008 (1.001-1.035) Urine Protein Negative (Negative) Urine Glucose (UA) Negative (Negative) Urine Ketones Negative (Negative) Urine Blood Trace H (Negative) Urine Nitrite Negative (Negative) Urine Bilirubin Negative (Negative) Urine Urobilinogen <2.0 (<2.0) mg/dL Ur Leukocyte Esterase Trace H (Negative) Urine RBC 2 (0-5) /hpf Urine WBC 2 (0-5) /hpf Ur Squamous Epith Cells 2 (0-4) /hpf Urine Bacteria Occasional H (None) /hpf Urine Mucus Rare H (None) /hpf Urine HCG, Qual Not Detected (Not Detectd) 01/05/21 Range/Units 19:53 WBC (3.8-10.6) k/uL RBC (3.80-5.40) m/uL Hgb (11.4-16.0) gm/dL Hct (34.0-46.0) % MCV (80.0-100.0) fL MCH (25.0-35.0) pg MCHC (31.0-37.0) g/dL RDW (11.5-15.5) % Plt Count (150-450) k/uL MPV Neutrophils % % Lymphocytes % % Monocytes % % Eosinophils % % Basophils % % Neutrophils # (1.3-7.7) k/uL Lymphocytes # (1.0-4.8) k/uL Monocytes # (0-1.0) k/uL Eosinophils # (0-0.7) k/uL Basophils # (0-0.2) k/uL Sodium 137 (137-145) mmol/L Potassium 3.6 (3.5-5.1) mmol/L Chloride 106 (98-107) mmol/L Carbon Dioxide 24 (22-30) mmol/L Anion Gap 7 mmol/L BUN 8 (7-17) mg/dL Creatinine 0.53 (0.52-1.04) mg/dL Est GFR (CKD-EPI)AfAm >90 (>60 ml/min/1.73 sqM) Est GFR (CKD-EPI)NonAf >90 (>60 ml/min/1.73 sqM) Glucose 88 (74-99) mg/dL Calcium 9.5 (8.4-10.2) mg/dL Total Bilirubin 0.5 (0.2-1.3) mg/dL AST 18 (14-36) U/L ALT 13 (4-34) U/L Alkaline Phosphatase 58 (38-126) U/L C-Reactive Protein <0.5 (<1.0) mg/dL Total Protein 7.0 (6.3-8.2) g/dL Albumin 4.4 (3.5-5.0) g/dL Urine Color Urine Appearance (Clear) Urine pH (5.0-8.0) Ur Specific [place] (1.001-1.035) Urine Protein (Negative) Urine Glucose (UA) (Negative) Urine Ketones (Negative) Urine Blood (Negative) Urine Nitrite (Negative) Urine Bilirubin (Negative) Urine Urobilinogen (<2.0) mg/dL Ur Leukocyte Esterase (Negative) Urine RBC (0-5) /hpf Urine WBC (0-5) /hpf Ur Squamous Epith Cells (0-4) /hpf Urine Bacteria (None) /hpf Urine Mucus (None) /hpf Urine HCG, Qual (Not Detectd) - Radiology Data Radiology results: report reviewed, image reviewed Transvaginal ultrasound is obtained. Report was reviewed in its entirety. Impression by Dr. Remi Escobar shows no acute process. CT abdomen and pelvis with contrast was obtained. Report was reviewed in its entirety. Impression by Dr. Remi Escobar shows no acute process. Disposition Clinical Impression: Abdominal pain Disposition: HOME SELF-CARE Condition: Good Instructions (If sedation given, give patient instructions): Abdominal Pain (ED) Additional Instructions: Follow up with your primary care physician for recheck in 1-2 days. Take pain medication sparingly as needed for pain control. Return to the emergency department for any new, worsening, or concerning symptoms. Is patient prescribed a controlled substance at d/c from ED?: No Referrals: Terrell Mckinnon MD [Primary Care Provider] - 1-2 days Time of Disposition: 22:13
[2021-01-05 20:13] LABS: Basophils % (A) 0 %; Eosinophils # (A) 0.1 k/uL (0-0.7); Eosinophils % (A) 2 %; HCT 41.9 % (34.0-46.0); HGB 14.5 gm/dL (11.4-16.0); Lymphocytes # (A) 3.5 k/uL (1.0-4.8); Lymphocytes % (A) 45 %; MCH 31.6 pg (25.0-35.0); MCHC 34.6 g/dL (31.0-37.0); MCV 91.2 fL (80.0-100.0); Mean Platelet Volume 9.7; Monocytes # (A) 0.4 k/uL (0-1.0); Monocytes % (A) 5 %; Neutrophils # (A) 3.5 k/uL (1.3-7.7); Neutrophils % (A) 45 %; Platelet Count 203 k/uL (150-450); RBC 4.59 m/uL (3.80-5.40); RDW 12.4 % (11.5-15.5); WBC 7.8 k/uL (3.8-10.6)
[2021-01-05 20:26] LABS: ALT 13 U/L (4-34); AST 18 U/L (14-36); African American GFR (CKD) >90 (>60 ml/min/1.73 sqM); Albumin 4.4 g/dL (3.5-5.0); Alkaline Phosphatase 58 U/L (38-126); Anion Gap 7 mmol/L; Blood Urea Nitrogen 8 mg/dL (7-17); C Reactive Protein <0.5 mg/dL (<1.0); Calcium 9.5 mg/dL (8.4-10.2); Carbon Dioxide 24 mmol/L (22-30); Chloride 106 mmol/L (98-107); Glucose 88 mg/dL (74-99); Non-African American GFR(CKD) >90 (>60 ml/min/1.73 sqM); Potassium 3.6 mmol/L (3.5-5.1); Sodium 137 mmol/L (137-145); Total Bilirubin 0.5 mg/dL (0.2-1.3)
--- NOTE | 2021-01-05 20:58 | US ---
EXAMINATION TYPE: US transvaginal DATE OF EXAM: 01/05/2021 COMPARISON: NONE CLINICAL HISTORY: Right lower quadrant pain. TECHNIQUE: Transvaginal sonographic images of the pelvis were acquired. Date of LMP: 1 week ago EXAM MEASUREMENTS: Uterus: 6.3 x 2.8 x 4.4 cm Endometrial Stripe: 0.4 cm Right Ovary: 3.8 x 1.9 x 1.8 cm Left Ovary: 1.6 x 1.8 x 0.9 cm 1. Uterus: Anteverted wnl 2. Endometrium: wnl 3. Right Ovary: wnl, follicles visualized 4. Left Ovary: wnl Spectral, color and waveform doppler imaging shows good arterial and venous flow within the ovaries ; there is no evidence for ovarian torsion. 5. Bilateral Adnexa: wnl 6. Posterior cul-de-sac: wnl IMPRESSION: No acute process.
--- NOTE | 2021-01-05 22:03 | CT ---
EXAMINATION TYPE: CT abdomen pelvis w con DATE OF EXAM: 01/05/2021 COMPARISON: 06/30/2014 HISTORY: RLQ pain, appy suspected CT DLP: 538.4 mGycm Automated exposure control for dose reduction was used. TECHNIQUE: Helical acquisition of images was performed from the lung bases through the pelvis. CONTRAST: Performed without Oral Contrast and with IV Contrast, patient injected with 100 mL of Isovu e 300. FINDINGS: LUNG BASES: No significant abnormality is appreciated. LIVER/GB: No significant abnormality is appreciated. PANCREAS: No significant abnormality is seen. SPLEEN: No significant abnormality is seen. ADRENALS: No significant abnormality is seen. KIDNEYS: No significant abnormality is seen. FREE AIR: No free air is visualized. RETROPERITONEAL ADENOPATHY: None visualized REPRODUCTIVE ORGANS: No significant abnormality is seen URINARY BLADDER: No significant abnormality is seen. PELVIC ADENOPATHY: None visualized. OSSEOUS STRUCTURES: No significant abnormality is seen. BOWEL: No significant abnormality is seen. Appendix is negative. OTHER: No acute vascular findings. IMPRESSION: NO ACUTE PROCESS.
[2021-01-05] MEDS ORDERED: ACET/COD 300 MG/30 MG STARTER PACK 6 TAB BTL PO STA (22:12)
[2021-01-05 22:29] VITALS: BP 117/97; PULSE 59
== END 2021-01-05 22:39 | disposition home or self-care (01) ==
LOC: EC 16:11
DX: R10.31 Right lower quadrant pain (principal); F41.9 Anxiety disorder, unspecified; F12.90 Cannabis use, unspecified, uncomplicated; Z79.51 Long term (current) use of inhaled steroids; Z79.1 Long term (current) use of non-steroidal anti-inflammatories (NSAID); Z79.899 Other long term (current) drug therapy; Z88.1 Allergy status to other antibiotic agents; Z82.49 Family history of ischemic heart disease and other diseases of the circulatory system
CPT/HCPCS: 36415; 80053; 85025; 86140; 81001; 81025; 93975; 76830; 74177; 96374; 96375; 96376; 96361; 99284; J2405; J2270; Q9967

== ENCOUNTER → 2021-01-26 | Outpatient (CLI) | payer OTHER ==
[2021-01-26 13:30] LABS: MCH 30.5 pg (25.0-35.0); MCHC 33.4 g/dL (31.0-37.0); MCV 91.4 fL (80.0-100.0); Mean Platelet Volume 10.7; Platelet Count 177 k/uL (150-450); RDW 11.7 % (11.5-15.5); WBC 5.6 k/uL (3.8-10.6)
[2021-01-26 13:49] LABS: African American GFR (CKD) >90 (>60 ml/min/1.73 sqM); Anion Gap 8 mmol/L; Blood Urea Nitrogen 11 mg/dL (7-17); Carbon Dioxide 25 mmol/L (22-30); Chloride 106 mmol/L (98-107); Non-African American GFR(CKD) >90 (>60 ml/min/1.73 sqM); Potassium 4.7 mmol/L (3.5-5.1); Sodium 139 mmol/L (137-145)
== END | disposition home or self-care (01) ==
LOC: LABPAT 11:51
PROVIDERS: ATTEND Internal Medicine Clinical Cardiac Electrophysiology
DX: Z01.812 Encounter for preprocedural laboratory examination (principal); I47.1 Supraventricular tachycardia
CPT/HCPCS: 36415; 80051; 82565; 84520; 85027

== ENCOUNTER 2021-02-02 11:23 | Day surgery (SDC) | payer OTHER ==
[2021-01-31 10:50] VITALS: BMI 18.4
[2021-02-02] MEDS: SODIUM CHLORIDE 0.9% 1,000 ML IV SCH (11:54)
[2021-02-02] MEDS ORDERED: LIDOCAINE 1% INJ 10MG/ML (20 ML MDV) ONE ×4 (13:40→16:54)
[2021-02-02] MEDS ORDERED: fentaNYL (PF) 50 MCG/ML 2 ML AMP ONE (13:43)
[2021-02-02] MEDS ORDERED: MIDAZOLAM 2 MG/2 ML VIAL ONE (13:43)
[2021-02-02] MEDS ORDERED: diphenhydrAMINE 50 MG/ML 1 ML VIAL ONE (13:43)
[2021-02-02] MEDS ORDERED: ISOPROTERENOL 250 MCG/1.25 ML SYR IV ONE (13:43)
[2021-02-02] MEDS ORDERED: PROPOFOL 10 MG/ML 20 ML VIAL IV ONE (13:43)
--- NOTE | 2021-02-02 14:04 | P.HPCAR ---
History of Present Illness This is Dr. Mccann dictating an H/P on this patient The patient was interviewed and examined IMPRESSION / ASSESSMENT: Narrow complex of ventricular tachycardia Adenosine sensitive PLAN: Proceed with EP study and ablation HPI History of recurrent palpitations of sudden onset In the emergency room twelve-lead EKG showed narrow complex SVT with terminal P waves Adenosine sensitive She's had breakthrough episodes of palpitations on verapamil, brief ROS: No fever chills or rigors, no cough, phlegm or expectoration, no nausea, vomiting or diarrhea, no hematuria, dysuria, no musculoskeletal complaints, no strokes or seizures, no skin lesions. EXAMINATION: Temperature 90.9F, pulse rate in the 60s, blood pressure 129/67 mmHg Normal heart sounds normal S1 normal S2 no murmurs without rub Breath sounds are clear no rhonchi no crackles Abdomen is soft Extremity is warm no edema No JVD REVIEW OF LABS, ECG & MEDICAL DATA Twelve-lead EKG shows sinus rhythm short MI interval narrow QRS no delta waves normal ST segments Physical Exam Vitals: Vital Signs Temp Pulse Resp BP Pulse Ox 02/02/21 11:53 99.3 F 67 18 129/67 100 Intake and Output 02/01/21 02/02/21 02/02/21 22:59 06:59 14:59 Intake Total 100 Balance 100 Intake: IV 100 Other: Weight 52.9 kg Past Medical History Past Medical History: GERD/Reflux Additional Past Medical History / Comment(s): SEE DR MCCANN H&P, hx kidney stones, History of Any Multi-Drug Resistant Organisms: None Reported Past Surgical History: Orthopedic Surgery Additional Past Surgical History / Comment(s): arthroscopy both knees, cystoscopy/lithotripsy x 2, LEEP procedure, Past Anesthesia/Blood Transfusion Reactions: Motion Sickness Smoking Status: Former smoker - Past Family History Mother Family Medical History: No Reported History Physical Examination Vital Signs Temp Pulse Resp BP Pulse Ox 02/02/21 11:53 99.3 F 67 18 129/67 100 Intake and Output 02/01/21 02/02/21 02/02/21 22:59 06:59 14:59 Intake Total 100 Balance 100 Intake: IV 100 Other: Weight 52.9 kg Results Current Medications Generic Name Dose Route Start Last Admin Trade Name Freq PRN Reason Stop Dose Admin Sodium Chloride 1,000 mls @ 20 mls/hr 02/02/21 05:54 02/02/21 11:54 Saline 0.9% IV 03/04/21 05:55 100 mls .Q24H DORETHA Administration Intake and Output 02/01/21 02/02/21 02/02/21 22:59 06:59 14:59 Intake Total 100 Balance 100 Intake: IV 100 Other: Weight 52.9 kg Patient Weight 02/03/21 06:59 Weight 52.9 kg
[2021-02-02] MEDS ORDERED: LIDOCAINE 1% INJ 10MG/ML (20 ML MDV) SQ ONE ×3 (14:25→16:55)
[2021-02-02] MEDS ORDERED: HEPARIN SODIUM (1,000 UNIT/ML) 1,000 UNIT in SODIUM CHLORIDE 0.9% 1,000 ML IRRIGATION ONE (15:30)
--- NOTE | 2021-02-02 17:19 | P.PRLE ---
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 Guadarrama as before Thank you for entrusting me with the care of the patient Warm regards Sincerely Roosevelt Mccann
--- NOTE | 2021-02-02 17:30 | P.EPPROC ---
- EP Procedure Note Electrophysiology Procedure Note: Diagnosis Recurrent SVT narrow complex adenosine since Procedure details Patient was brought to the EP lab in a fasting state. Written informed consent was obtained prior to the procedure. Regular groins prepped and draped as a protocol and venous sheaths were placed. Diagnostic catheters were placed in the high right atrium His bundle area right ventricle and coronary sinus Baseline measurements were as follows: Sinus cycle length 1150 ms, WI interval 95 ms, QRS 21 ms and QT 360 ms Parahisian pacing was performed and bruno response was noted AV node Wenckebach block 5:30 milliseconds VA Wenckebach block for 70 ms, retrograde conduction midline and decremental Sinus node recovery times at 600 504 100 ms were 06/07/2007, 2058 and 1582 ms. This issedated state AV node ERP 600\460 ms and atrial ERP 600\to 30 ms Ventricular system ablation performed and vein jump was noted@600\360 ms VA ERP 600\310 ms Burst stimulation from the high right atrium at 390 ms SVT consistent with a reentry Septum times a short VAAV response was noted later A long sheath was placed in an irrigated tip catheter was placed Slow pathway left Junctional rhythm was obtained with a power of 20 J was increased to 25 J Follow once Isuprel started SVT once again inducible with straight pacing Isuprel was stopped and RF ablation was performed slightly lateral to this first RF site and junctional rhythm was obtained. Finally after a few RF lesions that delivered at the site maneuvers junctional rhythm was obtained Thereafter high-dose Isuprel started Straight pacing, burst stimulation, extra stimulation Single and double's extrastimuli was employed from multiple sites high right atrium and the coronary sinus poles There was no evidence for slow pathway conduction No evidence for inducible SVT Very brief nonsustained atrial tachycardia was induced in the baseline state no sustained atrial fibrillation noted The end of the procedure catheters were removed hemostasis was assured with flow stasis Result Diagnoses EP study revealing reentry mechanism cardio Mildly prolonged sinus node recovery times in the sedated state Normal AV node function line bruno response to Parahisian pacing Successful mapping and ablation of the slow pathway and illumination the slow pathway Noninducibility of AV node reentry at the end of the procedure Patient tolerated the procedure well without any complications
[2021-02-02] MEDS ORDERED: ACETAMINOPHEN TAB 325 MG TAB PO STA (18:25)
[2021-02-02 18:26] VITALS: RESP 16
[2021-02-03] MEDS: SODIUM CHLORIDE 0.9% 1,000 ML IV SCH (05:23)
[2021-02-03 08:58] VITALS: BP 95/59; PULSE 51; TEMP 98.2
--- NOTE | 2021-02-03 10:10 | DS ---
DISCHARGE SUMMARY Bailey is a patient of Dr. Coelho who has recurrent SVT. She was brought in for an EP study and ablation. AV bruno re-entry was induced and she underwent successful slow pathway ablation. This was rendered noninducible at the end of the procedure. Today, she is doing well. Her groins have healed well. There has been no hematoma. Minimal tenderness. Normal heart sounds. Normal S1, normal S2. No murmurs. Breath sounds are clear. No JVD. Her blood pressure is normal. She has no chest discomfort. No dizziness, no lightheadedness. SUGGEST: Patient encouraged to ambulate in the hallways prior to discharge. If she is stable, she will go home today. No more verapamil and follow up with Dr. Coelho in a week. MMODL / IJN: [id number] /
== END 2021-02-03 11:10 | disposition home or self-care (01) ==
LOC: CATHEP 11:23 → 6NMEDSUR 17:26 → CATHEP 02-03 11:10
PROVIDERS: ATTEND Internal Medicine Clinical Cardiac Electrophysiology
DX: I47.1 Supraventricular tachycardia (principal); Z72.0 Tobacco use; K21.9 Gastro-esophageal reflux disease without esophagitis; Z20.822 Contact with and (suspected) exposure to COVID-19; Z87.442 Personal history of urinary calculi; Z88.1 Allergy status to other antibiotic agents; Z79.899 Other long term (current) drug therapy
CPT/HCPCS: 93623; 93613; 93653; 81025; 87635; C1894; C1769 ×2; C1730 ×3; C1893; C1732; J2001; J1644

== ENCOUNTER 2021-02-16 08:45 | Emergency (ER) | payer OTHER ==
[2021-02-16 08:51] VITALS: TEMP 98.3
--- NOTE | 2021-02-16 09:13 | ED ---
General Adult HPI - General Chief complaint: Abdominal Pain Stated complaint: Urogenital Time Seen by Provider: 02/16/21 08:53 Source: patient Mode of arrival: ambulatory Limitations: no limitations - History of Present Illness Initial comments: Dictation was produced using [employer] dictation software. please excuse any grammatical, word or spelling errors. Chief Complaint: 25-year-old female presents with urinary symptoms History of Present Illness: And 25-year-old female she presents to the emergency Department for urinary symptoms. Patient states she's had several weeks of symptoms. Patient states that recently she had an ablation procedure for SVT. Patient states that she's been having urinary symptoms since then. She went to her primary care doctor yesterday and was prescribed ciprofloxacin. Patient took 3 doses and feels like her symptoms aren't getting any better. She started to complain of lower back pain that she refers to as kidney pain. Denies any fevers but has been having episodic chills. Patient is sexually active in a monogamous relationship. She is not concerned about sexually transmitted diseas e. She denies any vaginal discharge or vaginal bleeding. Patient's last menstrual period was one month ago. Denies any abdominal surgery. She localizes the pain to the bilateral lower quadrants. Nonradiating. The ROS documented in this emergency department record has been reviewed and confirmed by me. Those systems with pertinent positive or negative responses have been documented in the HPI. All other systems are other negative and/or noncontributory. PHYSICAL EXAM: General Impression: Alert and oriented x3, not in acute distress HEENT: Normocephalic atraumatic, extra-ocular movements intact, pupils equal and reactive to light bilaterally, mucous membranes moist. Cardiovascular: Heart regular rate and rhythm Chest: Able to complete full sentences, no retractions, no tachypnea Abdomen: abdomen soft, mild tenderness to the bilateral lower quadrants, non- distended, no organomegaly Musculoskeletal: Pulses present and equal in all extremities, no peripheral edema Motor: no focal deficits noted Neurological: CN II-XII grossly intact, no focal motor or sensory deficits noted Skin: Intact with no visualized rashes Psych: Normal affect and mood ED course: 25-year-old female presents to the emergency department for urinary symptoms and bilateral lower abdominal pain vital signs upon arrival are within acceptable limits. Laboratory evaluation obtained. CBC, metabolic panel is unremarkable. Urinalysis shows 17 white blood cells with 90 red blood cells. Patient reevaluated at bedside at 10:30 AM. She reports that she is had only 3 doses of antibiotics. I believe that her antibiotics are working. Highly doubt pyelonephritis is patient does not have any pain or CVA area. Her pain is in her lower back. Slightly symptoms of cystitis. The patient's clear for dischar ge. She is advised to continue taking her antibiotics and follow with a primary care doctor. Patient is agreeable plan. - Related Data Home Medications Medication Instructions Recorded Confirmed Albuterol Sulfate [Proair Hfa] 2 puff INHALATION Q4H PRN 11/15/20 02/02/21 Aluminum Chloride [Drysol] 1 applicate TOPICAL DAILY 11/15/20 02/02/21 guanFACINE HCL [guanFACINE HCL ER] 3 mg PO HS 01/31/21 02/02/21 Previous Rx's Medication Instructions Recorded Ibuprofen [Motrin] 600 mg PO Q6HR PRN #30 tab 11/24/20 Allergies Allergy/AdvReac Type Severity Reaction Status Date / Time cephalexin [From Keflex] Allergy Swelling Verified 02/16/21 08:51 Review of Systems ROS Statement: Those systems with pertinent positive or pertinent negative responses have been documented in the HPI. ROS Other: All systems not noted in ROS Statement are negative. Past Medical History Past Medical History: GERD/Reflux, Supraventricular Tachycardia (SVT) Additional Past Medical History / Comment(s): joint pain since may, kidney stones, SVT History of Any Multi-Drug Resistant Organisms: None Reported Past Surgical History: Cardiac Ablation Additional Past Surgical History / Comment(s): arthroscopy both knees, cystoscopy, LEEP procedure Past Anesthesia/Blood Transfusion Reactions: No Reported Reaction Past Psychological History: Anxiety Smoking Status: Never smoker Past Alcohol Use History: None Reported Past Drug Use History: Marijuana - Past Family History Mother Family Medical History: No Reported History Father History Unknown: Yes General Exam Limitations: no limitations Course Vital Signs 02/16/21 08:47 Temperature 98.3 F Pulse Rate 72 Respiratory 20 Rate Blood Pressure 113/76 O2 Sat by Pulse 99 Oximetry Medical Decision Making - Lab Data Result diagrams: 02/16/21 09:32 02/16/21 09:32 Lab Results 10/14/21 10/14/21 10/14/21 Range/Units 08:58 08:58 09:32 WBC 4.8 (3.8-10.6) k/uL RBC 4.60 (3.80-5.40) m/uL Hgb 14.4 (11.4-16.0) gm/dL Hct 40.4 (34.0-46.0) % MCV 87.7 (80.0-100.0) fL MCH 31.3 (25.0-35.0) pg MCHC 35.7 (31.0-37.0) g/dL RDW 12.4 (11.5-15.5) % Plt Count 222 (150-450) k/uL MPV 9.7 Neutrophils % 51 % Lymphocytes % 38 % Monocytes % 6 % Eosinophils % 1 % Basophils % 1 % Neutrophils # 2.5 (1.3-7.7) k/uL Lymphocytes # 1.9 (1.0-4.8) k/uL Monocytes # 0.3 (0-1.0) k/uL Eosinophils # 0.1 (0-0.7) k/uL Basophils # 0.0 (0-0.2) k/uL Sodium (137-145) mmol/L Potassium (3.5-5.1) mmol/L Chloride (98-107) mmol/L Carbon Dioxide (22-30) mmol/L Anion Gap mmol/L BUN (7-17) mg/dL Creatinine (0.52-1.04) mg/dL Est GFR (CKD-EPI)AfAm (>60 ml/min/1.73 sqM) Est GFR (CKD-EPI)NonAf (>60 ml/min/1.73 sqM) Glucose (74-99) mg/dL Calcium (8.4-10.2) mg/dL Urine Color Yellow Urine Appearance Cloudy H (Clear) Urine pH 6.0 (5.0-8.0) Ur Specific [place] 1.028 (1.001-1.035) Urine Protein 1+ H (Negative) Urine Glucose (UA) Negative (Negative) Urine Ketones Negative (Negative) Urine Blood Large H (Negative) Urine Nitrite Negative (Negative) Urine Bilirubin Negative (Negative) Urine Urobilinogen <2.0 (<2.0) mg/dL Ur Leukocyte Esterase Moderate H (Negative) Urine RBC 90 H (0-5) /hpf Urine WBC 17 H (0-5) /hpf Ur Squamous Epith Cells 6 H (0-4) /hpf Urine Bacteria Rare H (None) /hpf Urine Mucus Many H (None) /hpf Urine HCG, Qual Not Detected (Not Detectd) 02/16/21 Range/Units 09:32 WBC (3.8-10.6) k/uL RBC (3.80-5.40) m/uL Hgb (11.4-16.0) gm/dL Hct (34.0-46.0) % MCV (80.0-100.0) fL MCH (25.0-35.0) pg MCHC (31.0-37.0) g/dL RDW (11.5-15.5) % Plt Count (150-450) k/uL MPV Neutrophils % % Lymphocytes % % Monocytes % % Eosinophils % % Basophils % % Neutrophils # (1.3-7.7) k/uL Lymphocytes # (1.0-4.8) k/uL Monocytes # (0-1.0) k/uL Eosinophils # (0-0.7) k/uL Basophils # (0-0.2) k/uL Sodium 139 (137-145) mmol/L Potassium 4.3 (3.5-5.1) mmol/L Chloride 108 H (98-107) mmol/L Carbon Dioxide 23 (22-30) mmol/L Anion Gap 8 mmol/L BUN 13 (7-17) mg/dL Creatinine 0.67 (0.52-1.04) mg/dL Est GFR (CKD-EPI)AfAm >90 (>60 ml/min/1.73 sqM) Est GFR (CKD-EPI)NonAf >90 (>60 ml/min/1.73 sqM) Glucose 114 H (74-99) mg/dL Calcium 9.7 (8.4-10.2) mg/dL Urine Color Urine Appearance (Clear) Urine pH (5.0-8.0) Ur Specific [place] (1.001-1.035) Urine Protein (Negative) Urine Glucose (UA) (Negative) Urine Ketones (Negative) Urine Blood (Negative) Urine Nitrite (Negative) Urine Bilirubin (Negative) Urine Urobilinogen (<2.0) mg/dL Ur Leukocyte Esterase (Negative) Urine RBC (0-5) /hpf Urine WBC (0-5) /hpf Ur Squamous Epith Cells (0-4) /hpf Urine Bacteria (None) /hpf Urine Mucus (None) /hpf Urine HCG, Qual (Not Detectd) Disposition Clinical Impression: UTI (urinary tract infection) Disposition: HOME SELF-CARE Condition: Good Instructions (If sedation given, give patient instructions): Urinary Tract Infection in Women (DC) Is patient prescribed a controlled substance at d/c from ED?: No Referrals: Terrell Mckinnon MD [Primary Care Provider] - 1-2 days
[2021-02-16 09:44] LABS: Basophils % (A) 1 %; Eosinophils # (A) 0.1 k/uL (0-0.7); Eosinophils % (A) 1 %; HCT 40.4 % (34.0-46.0); HGB 14.4 gm/dL (11.4-16.0); Lymphocytes # (A) 1.9 k/uL (1.0-4.8); Lymphocytes % (A) 38 %; MCH 31.3 pg (25.0-35.0); MCHC 35.7 g/dL (31.0-37.0); MCV 87.7 fL (80.0-100.0); Mean Platelet Volume 9.7; Monocytes # (A) 0.3 k/uL (0-1.0); Monocytes % (A) 6 %; Neutrophils # (A) 2.5 k/uL (1.3-7.7); Neutrophils % (A) 51 %; Platelet Count 222 k/uL (150-450); RDW 12.4 % (11.5-15.5); WBC 4.8 k/uL (3.8-10.6)
[2021-02-16 10:01] LABS: Appearance,Urine Cloudy (Clear); Bacteria,Urine Rare /hpf; Bilirubin,Urine Negative (Negative); Blood,Urine Large (Negative); Color,Urine Yellow; Glucose,Urine (UA) Negative (Negative); Ketones,Urine Negative (Negative); Leukocyte Esterase,Urine Moderate (Negative); Mucus,Urine Many /hpf; Nitrite,Urine Negative (Negative); Protein,Urine 1+ (Negative); RBC,Urine 90 /hpf (0-5); Specific Gravity,Urine 1.028 (1.001-1.035); Squamous Epithelial Cell,Urine 6 /hpf (0-4); Urobilinogen,Urine <2.0 mg/dL (<2.0); WBC,Urine 17 /hpf (0-5)
[2021-02-16 10:13] LABS: African American GFR (CKD) >90 (>60 ml/min/1.73 sqM); Anion Gap 8 mmol/L; Blood Urea Nitrogen 13 mg/dL (7-17); Calcium 9.7 mg/dL (8.4-10.2); Carbon Dioxide 23 mmol/L (22-30); Chloride 108 mmol/L (98-107); Glucose 114 mg/dL (74-99); Non-African American GFR(CKD) >90 (>60 ml/min/1.73 sqM); Potassium 4.3 mmol/L (3.5-5.1); Sodium 139 mmol/L (137-145)
[2021-02-16 10:48] VITALS: BP 97/63; PULSE 66; RESP 16
== END 2021-02-16 10:46 | disposition home or self-care (01) ==
LOC: EC 08:45
DX: N39.0 Urinary tract infection, site not specified (principal); I47.1 Supraventricular tachycardia; K21.9 Gastro-esophageal reflux disease without esophagitis; F41.9 Anxiety disorder, unspecified; F12.90 Cannabis use, unspecified, uncomplicated; Z88.1 Allergy status to other antibiotic agents; Z87.442 Personal history of urinary calculi; Z79.899 Other long term (current) drug therapy
CPT/HCPCS: 36415; 80048; 81001; 81025; 85025; 87086; 99284

== ENCOUNTER 2021-02-25 13:01 | Emergency (ER) | payer OTHER ==
[2021-02-25 13:33] VITALS: TEMP 98.7
[2021-02-25] MEDS ORDERED: KETOROLAC 15 MG/ML 1 ML VIAL IVP STA (15:21)
[2021-02-25 15:28] VITALS: RESP 16
[2021-02-25 15:49] LABS: Appearance,Urine Clear (Clear); Bilirubin,Urine Negative (Negative); Blood,Urine Moderate (Negative); Color,Urine Yellow; Glucose,Urine (UA) Negative (Negative); Ketones,Urine Negative (Negative); Leukocyte Esterase,Urine Small (Negative); Mucus,Urine Few /hpf; Nitrite,Urine Negative (Negative); PH, Urine 5.5 (5.0-8.0); Protein,Urine Trace (Negative); RBC,Urine 14 /hpf (0-5); Specific Gravity,Urine 1.023 (1.001-1.035); Squamous Epithelial Cell,Urine 1 /hpf (0-4); Urobilinogen,Urine <2.0 mg/dL (<2.0); WBC,Urine 7 /hpf (0-5)
[2021-02-25 15:51] LABS: Basophils % (A) 1 %; Eosinophils # (A) 0.1 k/uL (0-0.7); Eosinophils % (A) 2 %; HCT 41.7 % (34.0-46.0); HGB 14.5 gm/dL (11.4-16.0); Lymphocytes # (A) 2.5 k/uL (1.0-4.8); Lymphocytes % (A) 46 %; MCH 31.2 pg (25.0-35.0); MCHC 34.8 g/dL (31.0-37.0); MCV 89.8 fL (80.0-100.0); Monocytes # (A) 0.3 k/uL (0-1.0); Monocytes % (A) 5 %; Neutrophils # (A) 2.4 k/uL (1.3-7.7); Neutrophils % (A) 44 %; Platelet Count 225 k/uL (150-450); RBC 4.64 m/uL (3.80-5.40); RDW 12.6 % (11.5-15.5); WBC 5.4 k/uL (3.8-10.6)
[2021-02-25 16:01] LABS: ALT 10 U/L (4-34); AST 16 U/L (14-36); African American GFR (CKD) >90 (>60 ml/min/1.73 sqM); Albumin 4.2 g/dL (3.5-5.0); Alkaline Phosphatase 48 U/L (38-126); Anion Gap 9 mmol/L; Blood Urea Nitrogen 16 mg/dL (7-17); Calcium 9.3 mg/dL (8.4-10.2); Carbon Dioxide 21 mmol/L (22-30); Chloride 108 mmol/L (98-107); Glucose 98 mg/dL (74-99); Non-African American GFR(CKD) >90 (>60 ml/min/1.73 sqM); Potassium 3.7 mmol/L (3.5-5.1); Sodium 138 mmol/L (137-145); Total Bilirubin 0.5 mg/dL (0.2-1.3); Total Protein 7.1 g/dL (6.3-8.2)
--- NOTE | 2021-02-25 16:38 | CT ---
EXAMINATION TYPE: CT abdomen pelvis wo con DATE OF EXAM: 02/25/2021 COMPARISON: EXAMINATION TYPE: CT abdomen pelvis wo con DATE OF EXAM: 02/25/2021 COMPARISON: CT abdomen/pelvis 01/05/2021 HISTORY: Left flank pain with history of stones. CT DLP: 297.2 mGycm. Automated Exposure Control for Dose Reduction was Utilized. TECHNIQUE: Multiple contiguous axial CT images of the performed from the lung bases through the pubic symphysis without the administration of intravenous contrast. 2-D sagittal and coronal reformatted i mages were obtained. FINDINGS: Lung bases are clear. Liver, spleen, pancreas, and bilateral adrenal glands have an unremarkable unenhanced appearance. Gallbladder is present. No definite intrahepatic or extrahepatic biliary ductal dilatation. Kidneys are symmetric in size. Left hydronephrosis. No right hydronephrosis. Multiple nonobstructing renal calculi bilaterally largest measuring 2 mm on the right and millimeters on the left. 3 mm calcu palmer within the distal left ureter. No calculi with along the course of the right ureter. Urinary blad jovon is under distended, limiting its evaluation. Uterus is present. No adnexal masses. No free fluid. Visualized bowel is of normal caliber without evidence of obstruction. No significant mesenteric infl ammation. Appendix appears unremarkable. No free air. Abdominal aorta is of normal caliber. No intra-abdominal or retroperitoneal lymphadenopathy. Subcutan eous soft tissues appear unremarkable. Osseous structures appear intact. IMPRESSION: 1. 3 mm ureteral calculus within the distal left ureter with mild upstream hydroureteronephrosis. 2. Bilateral nephrolithiasis.
[2021-02-25] MEDS ORDERED: ACET/COD 300 MG/30 MG STARTER PACK 6 TAB BTL PO STA (17:11)
--- NOTE | 2021-02-25 17:17 | ED ---
General Adult HPI - General Chief complaint: Urogenital Stated complaint: Abd Pain Time Seen by Provider: 02/25/21 15:10 Source: patient Mode of arrival: ambulatory Limitations: no limitations - History of Present Illness Initial comments: 25-year-old female with past history of nephrolithiasis presents emergency room with reported left-sided flank pain. Reports that the pain started 2 weeks ago. She was evaluated by her primary care doctor on the and was placed on Cipro. She presented to the hospital on the . She was told to continue the medications for urinary tract infection. Denies any imaging at that time. Reports that her pain has increased in the left pelvic region and radiates up to the left groin. He has been taking Motrin at home without improvement in her symptoms. Also feels as she has decreased name of that she is urinating. States she can only go 3-4 drops that time. No fevers. Denies hematuria. Patient currently on her menstrual cycle and has no concern for . No changes in her bowel habits. She has had previous intervention for ureteral stones by Dr. Patterson. No nausea or vomiting. No other alleviating, precipitating or modifying factors - Related Data Home Medications Medication Instructions Recorded Confirmed guanFACINE HCL [guanFACINE HCL ER] 3 mg PO HS 01/31/21 02/25/21 Acetaminophen-Codeine 300-30mg 1 tab PO Q4H PRN 02/25/21 02/25/21 [Tylenol w/codeine #3] Dextroamphetamine/Amphetamine 10 mg PO DAILY 02/25/21 02/25/21 [Adderall Xr] Ibuprofen [Motrin Ib] 800 mg PO Q8H PRN 02/25/21 02/25/21 Tamsulosin HCl [Flomax] 0.4 mg PO DAILY 02/25/21 02/25/21 Previous Rx's Medication Instructions Recorded Acetaminophen-Codeine 300-30mg 1 tab PO Q6HR PRN #12 tablet 02/25/21 [Tylenol #3] Allergies Allergy/AdvReac Type Severity Reaction Status Date / Time cephalexin [From Keflex] Allergy Swelling Verified 02/25/21 16:25 Review of Systems ROS Statement: Those systems with pertinent positive or pertinent negative responses have been documented in the HPI. ROS Other: All systems not noted in ROS Statement are negative. Past Medical History Past Medical History: GERD/Reflux, Supraventricular Tachycardia (SVT) Additional Past Medical History / Comment(s): joint pain since may, kidney stones, SVT History of Any Multi-Drug Resistant Organisms: None Reported Past Surgical History: Cardiac Ablation Additional Past Surgical History / Comment(s): arthroscopy both knees, cystoscopy, LEEP procedure Past Anesthesia/Blood Transfusion Reactions: No Reported Reaction Past Psychological History: Anxiety Smoking Status: Never smoker Past Alcohol Use History: None Reported Past Drug Use History: Marijuana - Past Family History Mother Family Medical History: No Reported History Father History Unknown: Yes General Exam Limitations: no limitations Course Vital Signs 02/25/21 02/25/21 02/25/21 13:28 15:24 17:23 Temperature 98.7 F 98.7 F Pulse Rate 95 74 64 Respiratory 18 16 16 Rate Blood Pressure 118/80 123/84 115/67 O2 Sat by Pulse 100 100 100 Oximetry Medical Decision Making - Medical Decision Making Upon arrival patient placed in room 1. Thorough history and physical symptoms performed. Patient was bladder scanned does not have any urine in her bladder. IV is established laboratory studies were conducted. Patient was given a dose of Toradol for pain control. Laboratory studies reviewed. Urinalysis demonstrates small leukocyte esterase, 14 red blood cells and 7 white blood cells. No bacteria. Patient is sent over for a CT of her abdomen and pelvis which demonstrates a 3 mm left distal ureteral stone. Patient has pain which is controlled at this time. She'll be discharged home with a tylenol 3 starter pack. Instructed to call Dr. Patterson on Saturday for follow-up in his office. Alternate taking Motrin and Tylenol #3 for control. Return to the emergency room for any new or worsening symptoms. Patient remained in stable condition and was discharged home - Lab Data Result diagrams: 02/25/21 15:31 02/25/21 15:31 Lab Results 02/25/21 02/25/21 02/25/21 Range/Units 15:31 15:31 15:31 WBC 5.4 (3.8-10.6) k/uL RBC 4.64 (3.80-5.40) m/uL Hgb 14.5 (11.4-16.0) gm/dL Hct 41.7 (34.0-46.0) % MCV 89.8 (80.0-100.0) fL MCH 31.2 (25.0-35.0) pg MCHC 34.8 (31.0-37.0) g/dL RDW 12.6 (11.5-15.5) % Plt Count 225 (150-450) k/uL MPV 10.0 Neutrophils % 44 % Lymphocytes % 46 % Monocytes % 5 % Eosinophils % 2 % Basophils % 1 % Neutrophils # 2.4 (1.3-7.7) k/uL Lymphocytes # 2.5 (1.0-4.8) k/uL Monocytes # 0.3 (0-1.0) k/uL Eosinophils # 0.1 (0-0.7) k/uL Basophils # 0.0 (0-0.2) k/uL Sodium (137-145) mmol/L Potassium (3.5-5.1) mmol/L Chloride (98-107) mmol/L Carbon Dioxide (22-30) mmol/L Anion Gap mmol/L BUN (7-17) mg/dL Creatinine (0.52-1.04) mg/dL Est GFR (CKD-EPI)AfAm (>60 ml/min/1.73 sqM) Est GFR (CKD-EPI)NonAf (>60 ml/min/1.73 sqM) Glucose (74-99) mg/dL Calcium (8.4-10.2) mg/dL Total Bilirubin (0.2-1.3) mg/dL AST (14-36) U/L ALT (4-34) U/L Alkaline Phosphatase (38-126) U/L Total Protein (6.3-8.2) g/dL Albumin (3.5-5.0) g/dL Urine Color Yellow Urine Appearance Clear (Clear) Urine pH 5.5 (5.0-8.0) Ur Specific [place] 1.023 (1.001-1.035) Urine Protein Trace H (Negative) Urine Glucose (UA) Negative (Negative) Urine Ketones Negative (Negative) Urine Blood Moderate H (Negative) Urine Nitrite Negative (Negative) Urine Bilirubin Negative (Negative) Urine Urobilinogen <2.0 (<2.0) mg/dL Ur Leukocyte Esterase Small H (Negative) Urine RBC 14 H (0-5) /hpf Urine WBC 7 H (0-5) /hpf Ur Squamous Epith Cells 1 (0-4) /hpf Urine Mucus Few H (None) /hpf Urine HCG, Qual Not Detected (Not Detectd) 02/25/21 Range/Units 15:31 WBC (3.8-10.6) k/uL RBC (3.80-5.40) m/uL Hgb (11.4-16.0) gm/dL Hct (34.0-46.0) % MCV (80.0-100.0) fL MCH (25.0-35.0) pg MCHC (31.0-37.0) g/dL RDW (11.5-15.5) % Plt Count (150-450) k/uL MPV Neutrophils % % Lymphocytes % % Monocytes % % Eosinophils % % Basophils % % Neutrophils # (1.3-7.7) k/uL Lymphocytes # (1.0-4.8) k/uL Monocytes # (0-1.0) k/uL Eosinophils # (0-0.7) k/uL Basophils # (0-0.2) k/uL Sodium 138 (137-145) mmol/L Potassium 3.7 (3.5-5.1) mmol/L Chloride 108 H (98-107) mmol/L Carbon Dioxide 21 L (22-30) mmol/L Anion Gap 9 mmol/L BUN 16 (7-17) mg/dL Creatinine 0.53 (0.52-1.04) mg/dL Est GFR (CKD-EPI)AfAm >90 (>60 ml/min/1.73 sqM) Est GFR (CKD-EPI)NonAf >90 (>60 ml/min/1.73 sqM) Glucose 98 (74-99) mg/dL Calcium 9.3 (8.4-10.2) mg/dL Total Bilirubin 0.5 (0.2-1.3) mg/dL AST 16 (14-36) U/L ALT 10 (4-34) U/L Alkaline Phosphatase 48 (38-126) U/L Total Protein 7.1 (6.3-8.2) g/dL Albumin 4.2 (3.5-5.0) g/dL Urine Color Urine Appearance (Clear) Urine pH (5.0-8.0) Ur Specific [place] (1.001-1.035) Urine Protein (Negative) Urine Glucose (UA) (Negative) Urine Ketones (Negative) Urine Blood (Negative) Urine Nitrite (Negative) Urine Bilirubin (Negative) Urine Urobilinogen (<2.0) mg/dL Ur Leukocyte Esterase (Negative) Urine RBC (0-5) /hpf Urine WBC (0-5) /hpf Ur Squamous Epith Cells (0-4) /hpf Urine Mucus (None) /hpf Urine HCG, Qual (Not Detectd) Disposition Clinical Impression: Ureteral stone Disposition: HOME SELF-CARE Condition: Stable Instructions (If sedation given, give patient instructions): Ureteral Stones (ED) Additional Instructions: Please call and make an appointment with Dr. Patterson on Saturday. Alternate taking the Motrin and Tylenol every 4 hours. Return to the ED for any new or worsening symptoms. Prescriptions: Acetaminophen-Codeine 300-30mg [Tylenol #3] 1 tab PO Q6HR PRN #12 tablet PRN Reason: pain Is patient prescribed a controlled substance at d/c from ED?: Yes When asked, does pt state using other controlled substances?: No If prescribed controlled substance>3 days was MAPS reviewed?: Prescribed <3 Days If opioid is for acute pain is fill amount 7 days or less?: Yes If Rx opioid, was Start Talking consent form obtained?: Yes Referrals: Terrell Mckinnon MD [Primary Care Provider] - 1-2 days Jose Manuel Patterson MD [STAFF PHYSICIAN] - 1-2 days Time of Disposition: 17:17
[2021-02-25 17:25] VITALS: BP 115/67; PULSE 64
== END 2021-02-25 17:28 | disposition home or self-care (01) ==
LOC: EC 13:01
DX: N20.1 Calculus of ureter (principal); F41.9 Anxiety disorder, unspecified; F12.90 Cannabis use, unspecified, uncomplicated
CPT/HCPCS: 51798; 36415; 80053; 85025; 81001; 81025; 74176; 99284; 96374; J1885

== ENCOUNTER 2021-03-20 05:28 | Emergency (ER) | payer OTHER ==
[2021-03-20 05:38] VITALS: TEMP 98
[2021-03-20] MEDS ORDERED: ONDANSETRON 4 MG/2 ML VIAL IVP STA (06:30)
[2021-03-20] MEDS ORDERED: SODIUM CHLORIDE 0.9% 1,000 ML IV STA (06:30)
[2021-03-20] MEDS ORDERED: FAMOTIDINE 20 MG/2 ML VIAL IV STA (06:30)
[2021-03-20] MEDS ORDERED: MAG HYDROX/AL HYDROX/SIMETH 30 ML, HYOSCYAMINE ELIXIR 10 ML, LIDOCAINE VISCOUS 2% 10 ML PO STA ×3 (06:30)
--- NOTE | 2021-03-20 06:35 | ED ---
General Adult HPI - General Source: patient Mode of arrival: wheelchair Limitations: no limitations <Lei Reeder - Last Filed: 03/20/21 09:28> <Love Ny - Last Filed: 03/23/21 00:55> - General Chief complaint: Chest Pain Stated complaint: Upper Abd Pain Time Seen by Provider: 03/20/21 06:00 - History of Present Illness Initial comments: 25-year-old female presents to the emergency for chief complaint of upper abdominal pain. Patient has had epigastric pain since yesterday. States it radiates through to her back. Patient admits to nausea and has had diarrhea all night. No fevers but does feel hot and cold on and off. No history of abdominal surgeries. Patient states that movement makes the pain worse. pt denies any chest pain or shortness of breath. Patient has no other complaints at this time including shortness of breath, chest pain, , headache, or visual changes. (Lei Reeder) - Related Data Home Medications Medication Instructions Recorded Confirmed guanFACINE HCL [guanFACINE HCL ER] 3 mg PO HS 01/31/21 02/25/21 Acetaminophen-Codeine 300-30mg 1 tab PO Q4H PRN 02/25/21 02/25/21 [Tylenol w/codeine #3] Dextroamphetamine/Amphetamine 10 mg PO DAILY 02/25/21 02/25/21 [Adderall Xr] Ibuprofen [Motrin Ib] 800 mg PO Q8H PRN 02/25/21 02/25/21 Tamsulosin HCl [Flomax] 0.4 mg PO DAILY 02/25/21 02/25/21 Previous Rx's Medication Instructions Recorded Acetaminophen-Codeine 300-30mg 1 tab PO Q6HR PRN #12 tablet 02/25/21 [Tylenol #3] Dicyclomine [Bentyl] 20 mg PO TID PRN #12 tablet 03/20/21 Famotidine [Pepcid] 20 mg PO BID #30 tablet 03/20/21 Allergies Allergy/AdvReac Type Severity Reaction Status Date / Time cephalexin [From Keflex] Allergy Swelling Verified 03/20/21 05:37 Review of Systems ROS Other: All systems not noted in ROS Statement are negative. <Lei Reeder - Last Filed: 03/20/21 09:28> ROS Other: All systems not noted in ROS Statement are negative. <Love Ny Cristhian - Last Filed: 03/23/21 00:55> ROS Statement: Those systems with pertinent positive or pertinent negative responses have been documented in the HPI. Past Medical History Past Medical History: GERD/Reflux, Supraventricular Tachycardia (SVT) Additional Past Medical History / Comment(s): joint pain since may, kidney stones, SVT History of Any Multi-Drug Resistant Organisms: None Reported Past Surgical History: Cardiac Ablation Additional Past Surgical History / Comment(s): arthroscopy both knees, cystoscopy, LEEP procedure Past Anesthesia/Blood Transfusion Reactions: No Reported Reaction Past Psychological History: Anxiety Smoking Status: Never smoker Past Alcohol Use History: None Reported Past Drug Use History: Marijuana - Past Family History Mother Family Medical History: No Reported History Father History Unknown: Yes <Lei Reeder - Last Filed: 03/20/21 09:28> General Exam Limitations: no limitations General appearance: alert, in no apparent distress Head exam: Present: atraumatic Eye exam: Present: normal appearance, PERRL, EOMI. Absent: scleral icterus, conjunctival injection ENT exam: Present: normal exam, mucous membranes moist Neck exam: Present: normal inspection, full ROM. Absent: tenderness Respiratory exam: Present: normal lung sounds bilaterally. Absent: respiratory distress, wheezes Cardiovascular Exam: Present: regular rate, normal rhythm, normal heart sounds GI/Abdominal exam: Present: soft, tenderness (epigastric tenderness, no R or L upper abdominal tendernesss, no lower abdominal tenderness), normal bowel sounds. Absent: distended, guarding, rebound <Lei Reeder - Last Filed: 03/20/21 09:28> Course Vital Signs 03/20/21 03/20/21 03/20/21 05:32 08:22 09:56 Temperature 98.0 F 98.0 F Pulse Rate 95 68 68 Respiratory 16 18 18 Rate Blood Pressure 134/63 111/57 111/57 O2 Sat by Pulse 100 99 99 Oximetry Medical Decision Making - Lab Data Result diagrams: 03/20/21 06:54 03/20/21 06:54 <Lei Reeder - Last Filed: 03/20/21 09:28> - Lab Data Result diagrams: 03/20/21 06:54 03/20/21 06:54 <Love Ny - Last Filed: 03/23/21 00:55> - Medical Decision Making vitals stable. CBC CMP unremarkable. Urinalysis is negative. HCG negative. Coronavirus not detected. Chest x-ray shows no acute process. No significant change from prior. X-ray shows nonobstructive bowel gas pattern redemonstrated on KUB. Ultrasound of the gallbladder shows no shadowing mobile gallstones or ultrasound evidence for acute cholecystitis. She reevaluated after Pepcid and GI cocktail and did have improvement symptoms. Currently sleeping and resting comfortably. At this time patient can be discharged home with Pepcid and follow-up to GI for scope to rule out ulcer. Will return here for any worsening symptoms. (Lei Reeder) I was available for consultation in the emergency department. The history and physical exam were done by the midlevel provider. I was consulted for this patients care. I reviewed the case with the midlevel provider and based on their presentation of the patient, I agree with the assessment, medical decision making and plan of care as documented. Chart was dictated using Medine dictation software. Attempts were made to correct any dictation errors however some typographical errors may persist. (Love Ny) - Lab Data Lab Results 03/20/21 03/20/21 03/20/21 Range/Units 06:54 06:54 06:54 WBC 12.6 H (3.8-10.6) k/uL RBC 4.58 (3.80-5.40) m/uL Hgb 13.9 (11.4-16.0) gm/dL Hct 41.3 (34.0-46.0) % MCV 90.2 (80.0-100.0) fL MCH 30.4 (25.0-35.0) pg MCHC 33.7 (31.0-37.0) g/dL RDW 11.8 (11.5-15.5) % Plt Count 183 (150-450) k/uL MPV 10.2 Neutrophils % 80 % Lymphocytes % 12 % Monocytes % 6 % Eosinophils % 2 % Basophils % 0 % Neutrophils # 10.0 H (1.3-7.7) k/uL Lymphocytes # 1.5 (1.0-4.8) k/uL Monocytes # 0.7 (0-1.0) k/uL Eosinophils # 0.2 (0-0.7) k/uL Basophils # 0.0 (0-0.2) k/uL Sodium 138 (137-145) mmol/L Potassium 4.1 (3.5-5.1) mmol/L Chloride 106 (98-107) mmol/L Carbon Dioxide 23 (22-30) mmol/L Anion Gap 9 mmol/L BUN 14 (7-17) mg/dL Creatinine 0.55 (0.52-1.04) mg/dL Est GFR (CKD-EPI)AfAm >90 (>60 ml/min/1.73 sqM) Est GFR (CKD-EPI)NonAf >90 (>60 ml/min/1.73 sqM) Glucose 113 H (74-99) mg/dL Calcium 9.4 (8.4-10.2) mg/dL Total Bilirubin 0.3 (0.2-1.3) mg/dL AST 19 (14-36) U/L ALT 12 (4-34) U/L Alkaline Phosphatase 47 (38-126) U/L Total Protein 7.0 (6.3-8.2) g/dL Albumin 4.2 (3.5-5.0) g/dL Amylase 64 (30-110) U/L Lipase 98 (23-300) U/L Urine Color Yellow Urine Appearance Clear (Clear) Urine pH 5.5 (5.0-8.0) Ur Specific [place] 1.027 (1.001-1.035) Urine Protein Negative (Negative) Urine Glucose (UA) Negative (Negative) Urine Ketones Negative (Negative) Urine Blood Negative (Negative) Urine Nitrite Negative (Negative) Urine Bilirubin Negative (Negative) Urine Urobilinogen <2.0 (<2.0) mg/dL Ur Leukocyte Esterase Negative (Negative) Urine HCG, Qual (Not Detectd) Coronavirus (PCR) (Not Detectd) 03/20/21 03/20/21 Range/Units 06:54 06:54 WBC (3.8-10.6) k/uL RBC (3.80-5.40) m/uL Hgb (11.4-16.0) gm/dL Hct (34.0-46.0) % MCV (80.0-100.0) fL MCH (25.0-35.0) pg MCHC (31.0-37.0) g/dL RDW (11.5-15.5) % Plt Count (150-450) k/uL MPV Neutrophils % % Lymphocytes % % Monocytes % % Eosinophils % % Basophils % % Neutrophils # (1.3-7.7) k/uL Lymphocytes # (1.0-4.8) k/uL Monocytes # (0-1.0) k/uL Eosinophils # (0-0.7) k/uL Basophils # (0-0.2) k/uL Sodium (137-145) mmol/L Potassium (3.5-5.1) mmol/L Chloride (98-107) mmol/L Carbon Dioxide (22-30) mmol/L Anion Gap mmol/L BUN (7-17) mg/dL Creatinine (0.52-1.04) mg/dL Est GFR (CKD-EPI)AfAm (>60 ml/min/1.73 sqM) Est GFR (CKD-EPI)NonAf (>60 ml/min/1.73 sqM) Glucose (74-99) mg/dL Calcium (8.4-10.2) mg/dL Total Bilirubin (0.2-1.3) mg/dL AST (14-36) U/L ALT (4-34) U/L Alkaline Phosphatase (38-126) U/L Total Protein (6.3-8.2) g/dL Albumin (3.5-5.0) g/dL Amylase (30-110) U/L Lipase (23-300) U/L Urine Color Urine Appearance (Clear) Urine pH (5.0-8.0) Ur Specific [place] (1.001-1.035) Urine Protein (Negative) Urine Glucose (UA) (Negative) Urine Ketones (Negative) Urine Blood (Negative) Urine Nitrite (Negative) Urine Bilirubin (Negative) Urine Urobilinogen (<2.0) mg/dL Ur Leukocyte Esterase (Negative) Urine HCG, Qual Not Detected (Not Detectd) Coronavirus (PCR) Not Detected (Not Detectd) Disposition Is patient prescribed a controlled substance at d/c from ED?: No Time of Disposition: 09:30 <Lei Reeder P - Last Filed: 03/20/21 09:28> <Love Ny A - Last Filed: 03/23/21 00:55> Clinical Impression: Epigastric pain, Diarrhea Disposition: HOME SELF-CARE Condition: Good Instructions (If sedation given, give patient instructions): Abdominal Pain (ED) Additional Instructions: Please take medications as directed. Follow-up with your doctor and GI. Return to the emergency room for any worsening symptoms. Prescriptions: Dicyclomine [Bentyl] 20 mg PO TID PRN #12 tablet PRN Reason: Pain Famotidine [Pepcid] 20 mg PO BID #30 tablet Referrals: Terrell Mckinnon MD [Primary Care Provider] - 1-2 days Stefanie Ramsey MD [STAFF PHYSICIAN] - 1-2 days
[2021-03-20 07:24] LABS: Basophils % (A) 0 %; Eosinophils # (A) 0.2 k/uL (0-0.7); Eosinophils % (A) 2 %; HCT 41.3 % (34.0-46.0); HGB 13.9 gm/dL (11.4-16.0); Lymphocytes # (A) 1.5 k/uL (1.0-4.8); Lymphocytes % (A) 12 %; MCH 30.4 pg (25.0-35.0); MCHC 33.7 g/dL (31.0-37.0); MCV 90.2 fL (80.0-100.0); Mean Platelet Volume 10.2; Monocytes # (A) 0.7 k/uL (0-1.0); Monocytes % (A) 6 %; Neutrophils % (A) 80 %; Platelet Count 183 k/uL (150-450); RBC 4.58 m/uL (3.80-5.40); RDW 11.8 % (11.5-15.5); WBC 12.6 k/uL (3.8-10.6)
[2021-03-20 07:26] LABS: Appearance,Urine Clear (Clear); Bilirubin,Urine Negative (Negative); Blood,Urine Negative (Negative); Color,Urine Yellow; Glucose,Urine (UA) Negative (Negative); Ketones,Urine Negative (Negative); Leukocyte Esterase,Urine Negative (Negative); Nitrite,Urine Negative (Negative); PH, Urine 5.5 (5.0-8.0); Protein,Urine Negative (Negative); Specific Gravity,Urine 1.027 (1.001-1.035); Urobilinogen,Urine <2.0 mg/dL (<2.0)
[2021-03-20 07:41] LABS: ALT 12 U/L (4-34); AST 19 U/L (14-36); African American GFR (CKD) >90 (>60 ml/min/1.73 sqM); Albumin 4.2 g/dL (3.5-5.0); Alkaline Phosphatase 47 U/L (38-126); Amylase 64 U/L (30-110); Anion Gap 9 mmol/L; Blood Urea Nitrogen 14 mg/dL (7-17); Calcium 9.4 mg/dL (8.4-10.2); Carbon Dioxide 23 mmol/L (22-30); Chloride 106 mmol/L (98-107); Glucose 113 mg/dL (74-99); Lipase 98 U/L (23-300); Non-African American GFR(CKD) >90 (>60 ml/min/1.73 sqM); Potassium 4.1 mmol/L (3.5-5.1); Sodium 138 mmol/L (137-145); Total Bilirubin 0.3 mg/dL (0.2-1.3)
[2021-03-20 08:24] VITALS: BP 111/57; PULSE 68; RESP 18
--- NOTE | 2021-03-20 08:48 | XR ---
EXAMINATION TYPE: XR chest 2V DATE OF EXAM: 03/20/2021 COMPARISON: Chest x-ray October 30, 2020 HISTORY: Chest and epigastric pain. TECHNIQUE: Frontal and lateral views of the chest are obtained. FINDINGS: There is no suspicious focal air space opacity, pleural effusion, or pneumothorax seen. T he cardiac silhouette size is stable and within normal limits. The osseous structures are intact. IMPRESSION: No acute process. No significant change from prior.
--- NOTE | 2021-03-20 08:50 | XR ---
EXAMINATION TYPE: XR KUB DATE OF EXAM: 03/20/2021 8:14 AM CLINICAL HISTORY: Epigastric pain. History of kidney stones. TECHNIQUE: Two Upright KUB images of the abdomen are obtained. COMPARISON: CT abdomen and pelvis February 25, 2021. FINDINGS: Scattered gas is seen in non-distended small bowel loops. Gas and fecal material is seen in non-distended colon. Hepatomegaly with prominent right hepatic lobe redemonstrated. Known small bila teral renal calculi on recent CT less well seen on plain films. No free air. The lung bases are clear and the osseous structures are intact. IMPRESSION: As above. Overall nonobstructive bowel gas pattern redemonstrated.
--- NOTE | 2021-03-20 08:52 | US ---
EXAMINATION TYPE: US gallbladder DATE OF EXAM: 03/20/2021 COMPARISON: CT 02/25/2021 CLINICAL HISTORY: pain. Mid abdominal pain EXAM MEASUREMENTS: Liver Length: 18.1 cm Gallbladder Wall: 0.2 cm CBD: 0.5 cm Right Kidney: 10.8x5.6x5.6 cm Pancreas: wnl Liver: wnl Gallbladder: wnl Evidence for sonographic Concepcion's sign: No CBD: wnl Right Kidney: Sponge kidney appearance, INF stone measuring 0.3cm Visualized pancreas and liver appear within normal limits. Gallbladder seen without shadowing mobile intraluminal gallstones. There is 3 mm nonobstructing calculus lower pole level right kidney redemons trated. Increased cortical echogenicity to the medullary pyramids is consistent with underlying medu llary nephrocalcinosis. No new right-sided hydronephrosis. IMPRESSION: No shadowing mobile gallstones or ultrasound evidence for acute cholecystitis.
== END 2021-03-20 09:57 | disposition home or self-care (01) ==
LOC: EC 05:28
DX: R10.13 Epigastric pain (principal); R19.7 Diarrhea, unspecified; K21.9 Gastro-esophageal reflux disease without esophagitis; F41.9 Anxiety disorder, unspecified; F12.90 Cannabis use, unspecified, uncomplicated; Z88.1 Allergy status to other antibiotic agents; Z87.442 Personal history of urinary calculi; Z20.822 Contact with and (suspected) exposure to COVID-19
CPT/HCPCS: 99284; 96374; 96375; 36415; 80053; 82150; 83690; 85025; 81003; 81025; 87635; 71046; 74018; 76705; J2405

== ENCOUNTER → 2021-04-20 | Outpatient (CLI) | payer OTHER ==
[2021-04-20 19:36] LABS: Basophils # (A) 0.03 X 10*3/uL (0.00-0.10); Basophils % (A) 0.5 %; Eosinophils # (A) 0.09 X 10*3/uL (0.04-0.35); Eosinophils % (A) 1.6 %; HCT 44.7 % (37.2-46.3); HGB 14.3 g/dL (12.0-15.0); Lymphocytes # (A) 1.94 X 10*3/uL (0.90-5.00); Lymphocytes % (A) 35.5 %; MCH 29.8 pg (27.0-32.0); MCV 93.1 fL (80.0-97.0); Mean Platelet Volume 12.7 fL (9.5-12.2); Monocytes # (A) 0.52 X 10*3/uL (0.20-1.00); Monocytes % (A) 9.5 %; Neutrophils # (A) 2.86 X 10*3/uL (1.80-7.70); Neutrophils % (A) 52.5 %; Platelet Count 200 X 10*3/uL (140-440); RDW 13.1 % (11.5-14.5); WBC 5.46 X 10*3/uL (4.50-10.00)
[2021-04-20 22:24] LABS: African American GFR (CKD) 142.3 (60.0-200.0); Anion Gap 16.6 mmol/L (10.00-18.00); BUN/Creat Ratio 15.77 Ratio (12.00-20.00); Blood Urea Nitrogen 9.8 mg/dL (9.0-27.0); Calcium 9.5 mg/dL (8.7-10.3); Carbon Dioxide 20.3 mmol/L (20.0-27.5); Non-African American GFR(CKD) 122.8 (60.0-200.0); Potassium 4.1 mmol/L (3.5-5.5)
== END | disposition home or self-care (01) ==
LOC: LABWHC1 12:31
PROVIDERS: ATTEND Urology
DX: Z01.812 Encounter for preprocedural laboratory examination (principal); N20.0 Calculus of kidney; N20.1 Calculus of ureter
CPT/HCPCS: 36415; 80048; 85025

== ENCOUNTER 2021-04-27 07:46 | Day surgery (SDC) | payer OTHER ==
--- NOTE | 2021-04-22 11:21 | P.GSHP ---
History of Present Illness H&P Date: 04/22/21 Chief Complaint: Flank pain The patient is a 26-year-old white female with a history of calcium oxalate urolithiasis. Since early February, she has experienced bilateral flank pain, greater on the left. It was initially severe but recently she has been more comfortable. A CT scan performed on 02/25/2021 showed mild left hydronephrosis due to a 3 mm left distal ureteral calculus. The CT scan also showed several left renal calculi measuring up to 6 mm in size, and 2-3 tiny right lower pole renal calculi. - Constitutional Constitutional: Denies chills, Denies fever - Gastrointestinal Gastrointestinal: Denies nausea, Denies vomiting - Genitourinary (Female) Genitourinary: Reports flank pain, Denies hematuria Past Medical History Past Medical History: GERD/Reflux, Supraventricular Tachycardia (SVT) Additional Past Medical History / Comment(s): RENAL CALCULI. History of Any Multi-Drug Resistant Organisms: None Reported Past Surgical History: Cardiac Ablation Additional Past Surgical History / Comment(s): CARDIAC ABLATION, . Arthroscopy both knees, right ureteroscopy with laser lithotripsy in 2015 in 2016, LEEP procedure Past Anesthesia/Blood Transfusion Reactions: No Reported Reaction Past Psychological History: Anxiety Smoking Status: Former smoker Past Alcohol Use History: Rare Additional Past Alcohol Use History / Comment(s): QUITE 5 YEARS 2006, SMOKED 1PPD Past Drug Use History: Marijuana Additional Drug Use History / Comment(s): occasional use couple times per week - Past Family History Mother Family Medical History: No Reported History Father History Unknown: Yes Medications and Allergies Home Medications Medication Instructions Recorded Confirmed Type Acetaminophen-Codeine 300-30mg 1 tab PO Q6HR PRN #12 tablet 02/25/21 04/21/21 Rx [Tylenol #3] Dextroamphetamine/Amphetamine 10 mg PO QAM 02/25/21 04/21/21 History [Adderall Xr] Tamsulosin HCl [Flomax] 0.4 mg PO DAILY 02/25/21 04/21/21 History Dicyclomine [Bentyl] 20 mg PO TID PRN #12 tablet 03/20/21 04/21/21 Rx Famotidine [Pepcid] 20 mg PO BID #30 tablet 03/20/21 04/21/21 Rx Allergies Allergy/AdvReac Type Severity Reaction Status Date / Time cephalexin [From Keflex] Allergy Swelling Verified 04/21/21 15:27 Surgical - Exam - General well developed, well nourished, no distress - Neck no masses, trachea midline - Respiratory normal respiratory effort, clear to auscultation - Cardiovascular Rhythm: regular Abnormal Heart Sounds: no systolic murmur, no diastolic murmur, no rub, no S3 Gallop, no S4 Gallop, no click, no other - Abdomen Abdomen: soft, tender (Mild lower abdominal tenderness to palpation), no guarding, no rigid, no rebound - Psychiatric oriented to time, oriented to person, oriented to place, speech is normal, memory intact Results - Imaging CT scan - abdomen: report reviewed, image reviewed Assessment and Plan (1) Kidney stone Status: Acute Code(s): N20.0 - CALCULUS OF KIDNEY SNOMED Code(s): 95177999 (2) Calculus of ureter Status: Acute Code(s): N20.1 - CALCULUS OF URETER SNOMED Code(s): 99989389 Plan: Cystoscopy, left retrograde pyelogram, left ureteroscopy with Holmium laser l ithotripsy and possible stone basketing, left ureteral stent insertion. The procedure has been reviewed in detail with the patient, who understands risks to include anesthesia, bleeding, infection, ureteral injury, and inability to successfully remove the calculi. The decision was made not to remove the right renal calculi as they are so small it is felt to be unwarranted.
[~2021-04-27 07:46] MED LIST changes: -HYDROmorphone 0.5 MG/0.5 ML SYRINGE IVP PRN; +LEVOFLOXACIN 500MG-D5W PMX 500 MG in DEXTROSE/WATER 1 100ML.BAG IVPB PRN; -Pre Op ABX Message 1 EACH MISC MISCELLANE ONE
--- NOTE | 2021-04-27 08:01 | XR ---
EXAMINATION TYPE: XR KUB DATE OF EXAM: 04/27/2021 Comparison: 03/20/2021 Clinical History: 26-year-old female PRE-OP: RENAL CALCULI POSITION Findings: Faint right-sided midabdominal density measuring 4 mm. 8 mm on the left. Nonobstructive bowel gas pat tern. Minimal scattered stool. Impression: Faint 4 mm right-sided renal calculus and an 8 mm calculus on the left.
[2021-04-27] MEDS ORDERED: MIDAZOLAM 2 MG/2 ML VIAL ONE (09:05)
[2021-04-27] MEDS ORDERED: PROPOFOL 10 MG/ML 20 ML VIAL IV ONE (09:05)
[2021-04-27] MEDS ORDERED: KETOROLAC 15 MG/ML 1 ML VIAL ONE (09:05)
[2021-04-27] MEDS ORDERED: SUCCINYLCHOLINE CHLORIDE 100 MG/5 ML SYR IV ONE (09:05)
[2021-04-27] MEDS ORDERED: fentaNYL (PF) 50 MCG/ML 2 ML AMP ONE (09:05)
[2021-04-27] MEDS ORDERED: LIDOCAINE 1% INJ 10MG/ML (20 ML MDV) ONE (09:05)
[2021-04-27] MEDS ORDERED: IOPAMIDOL-370 50ML BTL MISCELLANE ONE (09:07)
--- NOTE | 2021-04-27 10:24 | P.OP ---
Date of Procedure: 04/27/21 Preoperative Diagnosis: Left ureteral calculus, left renal calculi Postoperative Diagnosis: Left renal calculi Procedure(s) Performed: Cystoscopy, left retrograde pyelogram, left ureteroscopy with Holmium laser lithotripsy and stone basketing, left ureteral stent insertion Anesthesia: JENN Surgeon: Jose Manuel Patterson Estimated Blood Loss (ml): 0 IV fluids (ml): 600 Pathology: none sent Condition: stable Disposition: PACU Indications for Procedure: The patient is a 26-year-old white female with a history of calcium oxalate urolithiasis. Since early February, she has experienced bilateral flank pain, greater on the left. It was initially severe but recently she has been more comfortable. A CT scan performed on 02/25/2021 showed mild left hydronephrosis due to a 3 mm left distal ureteral calculus. The CT scan also showed several left renal calculi measuring up to 6 mm in size, and 2-3 tiny right lower pole renal calculi. Operative Findings: No ureteral calculi. 2 left lower pole renal calculi, both fragmented comp letely. Description of Procedure: The patient was taken to the operating room and placed in the dorsolithotomy position, with legs supported in Shakir stirrups. The external genitalia was prepped and draped sterilely. The 30 lens was used to introduce the 21-[place] Ramirez cystoscopic sheath through the urethra and into the bladder under direct vision. The bladder was examined in its entirety. Both ureteral orifices were normal anatomic location and configuration, and clear urine effluxed from both. No tumors or foreign bodies were seen. Using a 10-[place] cone-tipped catheter, a left retrograde pyelogram was performed in the standard fashion. Using fluoroscopy to visualize the ureter, the ureter was noted to be normal in caliber and course. Specifically, no filling defects or calculi were seen. A 0.038 inch Glidewire was passed through the cystoscope. The ureteral orifice was cannulated, and the Glidewire was advanced up to the renal pelvis. The cystoscope was removed, and an 11/13- [place] ureteral access catheter was passed over the wire, up to the proximal ureter. The flexible ureteroscope was then passed through the ureteral access catheter sheath, up to the renal pelvis. Each calyx was examined. A calculus could not be identified within the mid pole calyces. 2 calculi were identified within lower pole calyces, each measuring approximately 6 mm in size. Using a 1.9-[place] nitinol basket, both calculi were relocated to an upper pole calyx. The 272 micron Holmium laser probe was passed through the ureteroscope, and lithotripsy was performed to fragment both calculi within the upper pole calyx, using a dusting mode. This was continued until there were no residual calculus fragments exceeding 1 mm in size. The Glidewire was passed through the ureteroscope, which was then removed under direct vision. There was no evidence of ureteral trauma. The Glidewire was backloaded into the cystoscope, which was passed into the bladder. A 28 cm, 4.8-[place] double-J ureteral stent was placed over the wire. Proper stent positioning was verified fluoroscopically and endoscopically. The bladder was emptied and the cystoscope removed. The patient tolerated the procedure well and was taken to the recovery room in stable condition. [facility] [place]: Procedure Acuity: Semi-Urgent Stone Size and Location: 6 mm, left lower pole Ureteral Dilation: No Ureteral Access Sheath Used: Yes Stone Sent for Analysis: No All Stones/Fragments Were Removed with a Basket: No Complications: No Preoperative Antibiotics Given: Yes Stent Placed: Yes If Stent Placed, Was String Left Attached: No If Stent Placed, When is it to be Removed: 1 week Discharge Medications: Toradol, tamsulosin, oxybutynin chloride
[2021-04-27 10:40] VITALS: TEMP 96.8
[2021-04-27] MEDS: HYDROmorphone 0.5 MG/0.5 ML SYRINGE IVP PRN ×2 (11:02→11:11)
[2021-04-27] MEDS ORDERED: LACTATED RINGERS 1,000 ML IV ONE (11:26)
--- NOTE | 2021-04-27 11:30 | FL ---
EXAMINATION TYPE: FL guidance operating room DATE OF EXAM: 04/27/2021 HISTORY: Fluoroscopy time 36.6 seconds of fluoroscopy provided. IMPRESSION: 1. Fluoroscopy time.
[2021-04-27] MEDS ORDERED: ONDANSETRON 4 MG/2 ML VIAL ONE (11:45)
[2021-04-27] MEDS ORDERED: ONDANSETRON 4 MG/2 ML VIAL IVP ONE (11:49)
[2021-04-27 12:03] VITALS: BP 122/74; PULSE 88; RESP 14
== END 2021-04-27 12:28 | disposition home or self-care (01) ==
LOC: OR 07:46
PROVIDERS: ATTEND Urology
DX: N20.2 Calculus of kidney with calculus of ureter (principal); K21.9 Gastro-esophageal reflux disease without esophagitis; I47.1 Supraventricular tachycardia; Z98.890 Other specified postprocedural states; F41.9 Anxiety disorder, unspecified; Z87.891 Personal history of nicotine dependence; Z79.899 Other long term (current) drug therapy; Z88.1 Allergy status to other antibiotic agents
CPT/HCPCS: 74018; 52356; C2625; C1758; C1769; J2250; J1100; J2405; J1956; J2001; J3010; J1885; J0330; J2704; J1170; Q9967

== ENCOUNTER → 2021-08-29 | Outpatient (CLI) | payer OTHER | END | disposition home or self-care (01) | LOC: LABWHC1 16:09 | PROVIDERS: ATTEND Nurse Practitioner | DX: R00.2 Palpitations (principal) | CPT/HCPCS: 36415; 84443 ==

== ENCOUNTER 2021-11-18 05:49 | Emergency (ER) | payer OTHER ==
[2021-11-18 05:56] VITALS: TEMP 97.8
[2021-11-18] MEDS ORDERED: SODIUM CHLORIDE 0.9% 1,000 ML IV STA (06:11)
--- NOTE | 2021-11-18 06:30 | ED ---
Arrhythmia/Palpitations HPI - General Chief Complaint: Arrhythmia/Palpitations Stated Complaint: Heart Palpatations, Dizziness Time Seen by Provider: 11/18/21 06:03 Source: patient Mode of arrival: ambulatory Limitations: no limitations - History of Present Illness Initial Comments: Patient is a 18-year-old female presenting with chief complaint of palpitations. Patient has a history of SVT, she has had an ablation and follows [facility]. Patient recently wore to a surveillance system monitor, headache removed on 11/13, and has appointment to follow up on December 04. Patient states that yesterday she began experiencing symptoms. She states that when she stands up or begins walking she experiences feelings of her heart skipping a beat, and fluctuations between rapid heart rate and very slow heart rate. States it is very uncomfortable and impedes her ability to work. She denies chest pain, shortness of breath, fever, chills, nausea, vomiting, abdominal pain, headache, vision or hearing changes, diaphoresis, cough, URI-like symptoms. - Related Data Home Medications Medication Instructions Recorded Confirmed Dextroamphetamine/Amphetamine 10 mg PO QAM 02/25/21 04/21/21 [Adderall Xr] Tamsulosin HCl [Flomax] 0.4 mg PO DAILY 02/25/21 04/21/21 Previous Rx's Medication Instructions Recorded Acetaminophen-Codeine 300-30mg 1 tab PO Q6HR PRN #12 tablet 02/25/21 [Tylenol #3] Dicyclomine [Bentyl] 20 mg PO TID PRN #12 tablet 03/20/21 Famotidine [Pepcid] 20 mg PO BID #30 tablet 03/20/21 Ketorolac [Toradol] 10 mg PO Q6HR PRN #12 tab 04/27/21 Oxybutynin Chloride [Oxybutynin 10 mg PO DAILY #10 tab 04/27/21 Chloride ER] Allergies Allergy/AdvReac Type Severity Reaction Status Date / Time cephalexin [From Keflex] Allergy Swelling Verified 11/18/21 05:55 Review of Systems ROS Statement: Those systems with pertinent positive or pertinent negative responses have been documented in the HPI. ROS Other: All systems not noted in ROS Statement are negative. Past Medical History Past Medical History: GERD/Reflux, Supraventricular Tachycardia (SVT) Additional Past Medical History / Comment(s): joint pain since may, kidney stones, SVT History of Any Multi-Drug Resistant Organisms: None Reported Past Surgical History: Ablation Additional Past Surgical History / Comment(s): arthroscopy both knees, cyst oscopy, LEEP procedure Past Anesthesia/Blood Transfusion Reactions: No Reported Reaction Past Psychological History: Anxiety Smoking Status: Never smoker Past Alcohol Use History: None Reported Past Drug Use History: Marijuana - Past Family History Mother Family Medical History: No Reported History Father History Unknown: Yes General Exam Limitations: no limitations General appearance: alert, in no apparent distress Head exam: Present: atraumatic, normocephalic, normal inspection Eye exam: Present: normal appearance, EOMI. Absent: scleral icterus, periorbital swelling Neck exam: Present: normal inspection Respiratory exam: Present: normal lung sounds bilaterally. Absent: respiratory distress, wheezes, rales, rhonchi, stridor Cardiovascular Exam: Present: regular rate, normal rhythm, normal heart sounds. Absent: systolic murmur, diastolic murmur, rubs, gallop, clicks Extremities exam: Present: normal inspection Neurological exam: Present: alert, oriented X3, CN II-XII intact Psychiatric exam: Present: normal affect, normal mood Skin exam: Present: warm, dry, intact, normal color. Absent: rash Course Vital Signs 11/18/21 11/18/21 11/18/21 05:54 06:28 07:00 Temperature 97.8 F Pulse Rate 84 64 Pulse Rate [ 63 Contour Sander ] Respiratory 18 18 Rate Blood Pressure 134/77 110/65 O2 Sat by Pulse 100 100 Oximetry EKG Findings - EKG Comments: EKG Findings:: Sinus rhythm with sinus arrhythmia, rate of 72. CT interval 124. QRS duration 92. QTC 391. Normal axis. No acute ST or T-wave changes. Medical Decision Making - Medical Decision Making Patient is a 26-year-old female presenting with chief complaint of palpitations. Patient has a history of SVT, she has had an ablation performed and follows with [facility]. She recently had a 2 week event monitor which ended on 11/13, she has an appointment on December 04 with [facility]. Patient states that over the last day she has had a intermittent episodes of palpitations that feel like her heart skipping a beat, as well as episodes of feeling as though her heart is beating fast and then rapidly slows down. This makes her dizzy. She denies any chest pain, shortness of breath, loss of consc iousness. On examination heart and lungs are clear to auscultation. EKG shows sinus rhythm with sinus arrhythmia with rate of 72 and no ischemic changes. CBC, d-dimer, PT/INR, electrolytes, troponin are WNL. TSH is 0.350, T3 and T4 are ordered. Chest x-ray shows no acute findings. Patient is informed of these findings, instructed to follow-up with her PCP regarding her TSH, as hyperthyroidism may be the cause of her symptoms. She is also instructed to follow-up with [facility] at her scheduled appointment or sooner. Report back to ER with any new or worsening symptoms. Educated on return parameters answered all questions. Patient conveyed verbal understanding and agreed to the plan. I discussed this case with my attending Dr. Rouse. - Lab Data Result diagrams: 11/18/21 06:11 11/18/21 06:11 Lab Results 11/18/21 11/18/21 11/18/21 Range/Units 06:11 06:11 06:11 WBC 5.8 (3.8-10.6) k/uL RBC 4.32 (3.80-5.40) m/uL Hgb 12.9 (11.4-16.0) gm/dL Hct 39.1 (34.0-46.0) % MCV 90.4 (80.0-100.0) fL MCH 29.9 (25.0-35.0) pg MCHC 33.1 (31.0-37.0) g/dL RDW 12.9 (11.5-15.5) % Plt Count 175 (150-450) k/uL MPV 10.2 Neutrophils % 65 % Lymphocytes % 25 % Monocytes % 7 % Eosinophils % 2 % Basophils % 0 % Neutrophils # 3.7 (1.3-7.7) k/uL Lymphocytes # 1.5 (1.0-4.8) k/uL Monocytes # 0.4 (0-1.0) k/uL Eosinophils # 0.1 (0-0.7) k/uL Basophils # 0.0 (0-0.2) k/uL PT 10.5 (9.0-12.0) sec INR 1.0 (<1.2) APTT 25.9 (22.0-30.0) sec D-Dimer <0.17 (<0.60) mg/L FEU Sodium 137 (137-145) mmol/L Potassium 4.6 (3.5-5.1) mmol/L Chloride 105 (98-107) mmol/L Carbon Dioxide 28 (22-30) mmol/L Anion Gap 4 mmol/L BUN 13 (7-17) mg/dL Creatinine 0.57 (0.52-1.04) mg/dL Est GFR (CKD-EPI)AfAm >90 (>60 ml/min/1.73 sqM) Est GFR (CKD-EPI)NonAf >90 (>60 ml/min/1.73 sqM) Glucose 104 H (74-99) mg/dL Calcium 9.1 (8.4-10.2) mg/dL Magnesium 1.9 (1.6-2.3) mg/dL Total Bilirubin 0.1 L (0.2-1.3) mg/dL AST 20 (14-36) U/L ALT 19 (4-34) U/L Alkaline Phosphatase 44 (38-126) U/L Troponin I (0.000-0.034) ng/mL Total Protein 6.9 (6.3-8.2) g/dL Albumin 4.2 (3.5-5.0) g/dL TSH 0.350 L (0.465-4.680) mIU/L 11/18/21 Range/Units 06:11 WBC (3.8-10.6) k/uL RBC (3.80-5.40) m/uL Hgb (11.4-16.0) gm/dL Hct (34.0-46.0) % MCV (80.0-100.0) fL MCH (25.0-35.0) pg MCHC (31.0-37.0) g/dL RDW (11.5-15.5) % Plt Count (150-450) k/uL MPV Neutrophils % % Lymphocytes % % Monocytes % % Eosinophils % % Basophils % % Neutrophils # (1.3-7.7) k/uL Lymphocytes # (1.0-4.8) k/uL Monocytes # (0-1.0) k/uL Eosinophils # (0-0.7) k/uL Basophils # (0-0.2) k/uL PT (9.0-12.0) sec INR (<1.2) APTT (22.0-30.0) sec D-Dimer (<0.60) mg/L FEU Sodium (137-145) mmol/L Potassium (3.5-5.1) mmol/L Chloride (98-107) mmol/L Carbon Dioxide (22-30) mmol/L Anion Gap mmol/L BUN (7-17) mg/dL Creatinine (0.52-1.04) mg/dL Est GFR (CKD-EPI)AfAm (>60 ml/min/1.73 sqM) Est GFR (CKD-EPI)NonAf (>60 ml/min/1.73 sqM) Glucose (74-99) mg/dL Calcium (8.4-10.2) mg/dL Magnesium (1.6-2.3) mg/dL Total Bilirubin (0.2-1.3) mg/dL AST (14-36) U/L ALT (4-34) U/L Alkaline Phosphatase (38-126) U/L Troponin I <0.012 (0.000-0.034) ng/mL Total Protein (6.3-8.2) g/dL Albumin (3.5-5.0) g/dL TSH (0.465-4.680) mIU/L Disposition Clinical Impression: Palpitations, Low TSH level Disposition: HOME SELF-CARE Condition: Good Instructions (If sedation given, give patient instructions): Heart Palpitations (ED), Hyperthyroidism (ED) Additional Instructions: Follow-up with PCP on Saturday regarding symptoms and low TSH level today. Follow-up with cardiology at scheduled appointment to review Holter monitor. Report back to ER with any new or worsening symptoms. Is patient prescribed a controlled substance at d/c from ED?: No Referrals: Terrell Mckinnon MD [Primary Care Provider] - 11/20/21 Alpa Guadarrama MD [STAFF PHYSICIAN] - As Soon As Possible Time of Disposition: 07:47
[2021-11-18 06:32] LABS: Basophils % (A) 0 %; Eosinophils # (A) 0.1 k/uL (0-0.7); Eosinophils % (A) 2 %; HCT 39.1 % (34.0-46.0); HGB 12.9 gm/dL (11.4-16.0); Lymphocytes # (A) 1.5 k/uL (1.0-4.8); Lymphocytes % (A) 25 %; MCH 29.9 pg (25.0-35.0); MCHC 33.1 g/dL (31.0-37.0); MCV 90.4 fL (80.0-100.0); Mean Platelet Volume 10.2; Monocytes # (A) 0.4 k/uL (0-1.0); Monocytes % (A) 7 %; Neutrophils # (A) 3.7 k/uL (1.3-7.7); Neutrophils % (A) 65 %; Platelet Count 175 k/uL (150-450); RBC 4.32 m/uL (3.80-5.40); RDW 12.9 % (11.5-15.5); WBC 5.8 k/uL (3.8-10.6)
[2021-11-18 06:43] LABS: ALT 19 U/L (4-34); AST 20 U/L (14-36); African American GFR (CKD) >90 (>60 ml/min/1.73 sqM); Albumin 4.2 g/dL (3.5-5.0); Alkaline Phosphatase 44 U/L (38-126); Anion Gap 4 mmol/L; Blood Urea Nitrogen 13 mg/dL (7-17); Calcium 9.1 mg/dL (8.4-10.2); Carbon Dioxide 28 mmol/L (22-30); Chloride 105 mmol/L (98-107); Glucose 104 mg/dL (74-99); Magnesium 1.9 mg/dL (1.6-2.3); Non-African American GFR(CKD) >90 (>60 ml/min/1.73 sqM); Potassium 4.6 mmol/L (3.5-5.1); Sodium 137 mmol/L (137-145); Total Bilirubin 0.1 mg/dL (0.2-1.3); Total Protein 6.9 g/dL (6.3-8.2)
[2021-11-18 06:45] LABS: Partial Thromboplastin Time 25.9 sec (22.0-30.0); Prothrombin Time 10.5 sec (9.0-12.0)
--- NOTE | 2021-11-18 07:03 | XR ---
EXAMINATION TYPE: XR chest 2V DATE OF EXAM: 11/18/2021 COMPARISON: 03/20/2021 HISTORY: Chest pain TECHNIQUE: Frontal and lateral views of the chest are obtained. FINDINGS: There is no focal air space opacity. No evidence for pneumothorax. No pleural effusion. The cardiac silhouette size is within normal limits. The osseous structures are grossly intact. IMPRESSION: 1. No acute cardiopulmonary process.
[2021-11-18 07:58] VITALS: BP 112/65; PULSE 68; RESP 16
== END 2021-11-18 07:57 | disposition home or self-care (01) ==
LOC: EC 05:49
DX: R00.2 Palpitations (principal); E03.9 Hypothyroidism, unspecified; Z88.1 Allergy status to other antibiotic agents
CPT/HCPCS: 36415; 71046; 80053; 83735; 84436; 84443; 84484; 85025; 85379; 85610; 85730; 93005; 96360; 99285

== ENCOUNTER → 2021-11-28 | Outpatient (CLI) | payer OTHER ==
[2021-11-28 18:43] LABS: African American GFR (CKD) 143.8 (60.0-200.0); Albumin 4.5 g/dL (3.8-4.9); Albumin/Globulin Ratio 1.73 (1.60-3.17); BUN/Creat Ratio 18.5 Ratio (12.00-20.00); Blood Urea Nitrogen 11.1 mg/dL (9.0-27.0); Calcium 9.1 mg/dL (8.7-10.3); Globulin 2.6 g/dL (1.6-3.3); T4, Free (Free Thyroxine) 1.03 ng/dL (0.800-1.800); Total Bilirubin 0.3 mg/dL (0.30-1.20); Total Protein 7.1 g/dL (6.2-8.2)
[2021-11-28 19:00] LABS: Thyroid Peroxidase Antibodies <9.0 U/mL (0.0-33.0)
[2021-11-28 19:15] LABS: Basophils # (A) 0.03 X 10*3/uL (0.00-0.10); Basophils % (A) 0.4 %; Eosinophils # (A) 0.14 X 10*3/uL (0.04-0.35); Eosinophils % (A) 1.9 %; HCT 38.9 % (37.2-46.3); HGB 12.6 g/dL (12.0-15.0); Immature Grans, Automated 0.3 %; Lymphocytes # (A) 3.11 X 10*3/uL (0.90-5.00); Lymphocytes % (A) 43.2 %; MCH 28.7 pg (27.0-32.0); MCHC 32.4 g/dL (32.0-37.0); MCV 88.6 fL (80.0-97.0); Mean Platelet Volume 12.9 fL (9.5-12.2); Monocytes # (A) 0.67 X 10*3/uL (0.20-1.00); Monocytes % (A) 9.3 %; NRBC Per 100 WBC 0 /100 WBCS (0.0-0.0); Neutrophils # (A) 3.23 X 10*3/uL (1.80-7.70); Neutrophils % (A) 44.9 %; Platelet Count 212 X 10*3/uL (140-440); RBC 4.39 X 10*6/uL (4.10-5.20); RDW 13.3 % (11.5-14.5)
== END | disposition home or self-care (01) ==
LOC: LABWHC1 12:09
PROVIDERS: ATTEND Family Medicine
DX: E03.9 Hypothyroidism, unspecified (principal); I47.1 Supraventricular tachycardia
CPT/HCPCS: 36415; 80053; 83735; 84439; 84443; 84481; 85025; 86376; 86800

== ENCOUNTER → 2021-12-05 | Outpatient (CLI) | payer OTHER | END | disposition home or self-care (01) | LOC: LABWHC1 10:49 | PROVIDERS: ATTEND Internal Medicine Interventional Cardiology | DX: E03.9 Hypothyroidism, unspecified (principal) | CPT/HCPCS: 36415; 84445 ==

== ENCOUNTER → 2021-12-07 | Outpatient (CLI) | payer OTHER ==
--- NOTE | 2021-12-07 08:43 | USB ---
Reason for Exam: Clinical finding. Technique: Method: Whole Breast Handheld. Findings: The whole breast of the left breast, the axilla of the left breast and the retroareolar of the left breast were scanned. Whole breast ultrasound including the subareolar region and axilla. Very dense tissues are present throughout. No solid or cystic lesion or axillary lymphadenopathy. Particular attention to the lower inner quadrant site of patient's pain.. Overall Assessment: Benign, BI-RAD 2 Management: Screening Mammogram of both breasts at age 38. 1. Further clinical management of patient's left breast pain. 2. Patient should continue monthly self breast exams. 3. This exam should not preclude additional follow-up of suspicious palpable abnormalities. Electronically signed and approved by: Paris Mathews M.D. Radiologist
== END | disposition home or self-care (01) ==
LOC: RADUSWWP 08:12
PROVIDERS: ATTEND Family Medicine
DX: R92.8 Other abnormal and inconclusive findings on diagnostic imaging of breast (principal)

== ENCOUNTER → 2022-01-24 | Day surgery (SDC) | payer OTHER ==
[~2022-01-24] MED LIST changes: -DEXAMETHASONE SOD PHOSPHATE 4 MG/ML 1 ML VIAL IV ONE; -LEVOFLOXACIN 500MG-D5W PMX 500 MG in DEXTROSE/WATER 1 100ML.BAG IVPB PRN; -ONDANSETRON 4 MG/2 ML VIAL IVP ONE; +PROPOFOL 10 MG/ML 20 ML VIAL IV ONE
[2022-01-24 10:12] VITALS: TEMP 97.6
--- NOTE | 2022-01-24 11:01 | P.PCN ---
Date of Procedure: 01/24/22 Procedure(s) Performed: BRIEF HISTORY: Patient is a 26-year-old pleasant female scheduled for an elective colonoscopy as a part of intermittent lower abdominal pain, diarrhea and rectal bleeding. PROCEDURE PERFORMED: Colonoscopy with random biopsy. PREOPERATIVE DIAGNOSIS: Intermittent lower abdominal pain, diarrhea and rectal bleeding. IV sedation per Anesthesia. PROCEDURE: After informed consent was obtained, the patient, was brought into the endoscopy unit. IV sedation was administered by Anesthesia under continuous monitoring. Digital rectal examination was normal. Initially the Olympus CF-160 flexible video colonoscope was then inserted in the rectum, gradually advanced into the cecum without any difficulty. Careful examination was performed as the scope was gradually being withdrawn. Ileocecal valve and the appendiceal orifice were visualized and appeared normal. Prep was excellent. Mucosa of the cecum, ascending colon, transverse colon, descending colon, sigmoid colon, and rectum appeared normal. Biopsies were done from ascending and descending colon to rule out scopic/collagenous colitis Retroflexion was performed in the rectum and no lesions were seen. The patient tolerated the procedure well. IMPRESSION: Normal-appearing colon from rectum to cecum with no evidence of colorectal neoplasia . RECOMMENDATIONS: Findings of this examination were discussed with the patient as her family. She was advised to follow with the biopsy results. Continue with her current medications and she'll be seen in office in 3-4 weeks..
[2022-01-24 11:30] VITALS: BP 113/75; PULSE 70; RESP 16
== END ==
LOC: ORWHC2ENDO 09:41
PROVIDERS: ATTEND Internal Medicine Gastroenterology
DX: K62.5 Hemorrhage of anus and rectum (principal); R19.7 Diarrhea, unspecified; F32.9 Major depressive disorder, single episode, unspecified; Z79.899 Other long term (current) drug therapy
CPT/HCPCS: 45380; 81025; 88305; J2704

== ENCOUNTER 2022-04-24 04:39 | Emergency (ER) | payer SELFPAY ==
[2022-04-24 04:48] VITALS: TEMP 97.7
[2022-04-24] MEDS ORDERED: ONDANSETRON 4 MG/2 ML VIAL IVP STA (04:49)
[2022-04-24] MEDS ORDERED: MORPHINE SULFATE 4 MG/ML SYRINGE IV STA (04:49)
[2022-04-24] MEDS ORDERED: SODIUM CHLORIDE 0.9% 1,000 ML IV STA (04:49)
[2022-04-24] MEDS ORDERED: PANTOPRAZOLE 40 MG/10 ML VIAL IVP STA (04:49)
--- NOTE | 2022-04-24 04:50 | ED ---
Abdominal Pain HPI - General Chief Complaint: Abdominal Pain Stated Complaint: Abdominal Pain, Blood in Vomit Time Seen by Provider: 04/24/22 04:49 Source: patient Mode of arrival: ambulatory - Related Data Home Medications Medication Instructions Recorded Confirmed Amitriptyline HCl 25 mg PO HS 01/23/22 01/24/22 Desvenlafaxine [Desvenlafaxine ER] 50 mg PO HS 01/23/22 01/24/22 Dicyclomine [Bentyl] 40 mg PO QID 01/23/22 01/24/22 Metoprolol Succinate (ER) [Toprol 25 mg PO BID 01/23/22 01/24/22 XL] Omeprazole 20 mg PO BID 01/23/22 01/24/22 Allergies Allergy/AdvReac Type Severity Reaction Status Date / Time cephalexin [From Keflex] Allergy Swelling Verified 04/24/22 04:48 Review of Systems ROS Statement: Those systems with pertinent positive or pertinent negative responses have been documented in the HPI. ROS Other: All systems not noted in ROS Statement are negative. Past Medical History Past Medical History: GERD/Reflux, Supraventricular Tachycardia (SVT) Additional Past Medical History / Comment(s): joint pain since may, kidney stones, SVT History of Any Multi-Drug Resistant Organisms: None Reported Past Surgical History: Ablation, Cardiac Ablation Additional Past Surgical History / Comment(s): CARDIAC ABLATION 2020. arthroscopy both knees, cystoscopy, LEEP procedure. Past Anesthesia/Blood Transfusion Reactions: No Reported Reaction Past Psychological History: Anxiety Smoking Status: Former smoker Past Alcohol Use History: None Reported Past Drug Use History: Marijuana - Past Family History Mother Family Medical History: No Reported History Father History Unknown: Yes Course Vital Signs 04/24/22 04/24/22 04:45 06:07 Temperature 97.7 F Pulse Rate 82 67 Respiratory 17 18 Rate Blood Pressure 127/69 O2 Sat by Pulse 99 100 Oximetry Medical Decision Making - Lab Data Result diagrams: 04/24/22 05:05 04/24/22 05:05 Lab Results 04/24/22 04/24/22 04/24/22 Range/Units 05:05 05:05 05:05 WBC 5.2 (3.8-10.6) k/uL RBC 4.28 (3.80-5.40) m/uL Hgb 13.2 (11.4-16.0) gm/dL Hct 38.0 (34.0-46.0) % MCV 88.8 (80.0-100.0) fL MCH 30.7 (25.0-35.0) pg MCHC 34.6 (31.0-37.0) g/dL RDW 12.2 (11.5-15.5) % Plt Count 195 (150-450) k/uL MPV 10.3 Neutrophils % 55 % Lymphocytes % 34 % Monocytes % 7 % Eosinophils % 1 % Basophils % 0 % Neutrophils # 2.9 (1.3-7.7) k/uL Lymphocytes # 1.8 (1.0-4.8) k/uL Monocytes # 0.4 (0-1.0) k/uL Eosinophils # 0.0 (0-0.7) k/uL Basophils # 0.0 (0-0.2) k/uL PT 10.4 (9.0-12.0) sec INR 1.0 (<1.2) APTT 26.4 (22.0-30.0) sec Sodium (137-145) mmol/L Potassium (3.5-5.1) mmol/L Chloride (98-107) mmol/L Carbon Dioxide (22-30) mmol/L Anion Gap mmol/L BUN (7-17) mg/dL Creatinine (0.52-1.04) mg/dL Est GFR (CKD-EPI)AfAm (>60 ml/min/1.73 sqM) Est GFR (CKD-EPI)NonAf (>60 ml/min/1.73 sqM) Glucose (74-99) mg/dL Calcium (8.4-10.2) mg/dL Total Bilirubin (0.2-1.3) mg/dL AST (14-36) U/L ALT (4-34) U/L Alkaline Phosphatase (38-126) U/L Total Protein (6.3-8.2) g/dL Albumin (3.5-5.0) g/dL Amylase (30-110) U/L Lipase (23-300) U/L Urine Color Red Urine Appearance Cloudy H (Clear) Urine pH 5.5 (5.0-8.0) Ur Specific [place] 1.026 (1.001-1.035) Urine Protein 2+ H (Negative) Urine Glucose (UA) Negative (Negative) Urine Ketones Trace H (Negative) Urine Blood Large H (Negative) Urine Nitrite Negative (Negative) Urine Bilirubin Negative (Negative) Urine Urobilinogen <2.0 (<2.0) mg/dL Ur Leukocyte Esterase Moderate H (Negative) Urine RBC >182 H (0-5) /hpf Urine WBC 28 H (0-5) /hpf Ur Squamous Epith Cells 14 H (0-4) /hpf Urine Bacteria Few H (None) /hpf Urine Mucus Many H (None) /hpf 04/24/22 Range/Units 05:05 WBC (3.8-10.6) k/uL RBC (3.80-5.40) m/uL Hgb (11.4-16.0) gm/dL Hct (34.0-46.0) % MCV (80.0-100.0) fL MCH (25.0-35.0) pg MCHC (31.0-37.0) g/dL RDW (11.5-15.5) % Plt Count (150-450) k/uL MPV Neutrophils % % Lymphocytes % % Monocytes % % Eosinophils % % Basophils % % Neutrophils # (1.3-7.7) k/uL Lymphocytes # (1.0-4.8) k/uL Monocytes # (0-1.0) k/uL Eosinophils # (0-0.7) k/uL Basophils # (0-0.2) k/uL PT (9.0-12.0) sec INR (<1.2) APTT (22.0-30.0) sec Sodium 140 (137-145) mmol/L Potassium 3.9 (3.5-5.1) mmol/L Chloride 108 H (98-107) mmol/L Carbon Dioxide 24 (22-30) mmol/L Anion Gap 8 mmol/L BUN 11 (7-17) mg/dL Creatinine 0.48 L (0.52-1.04) mg/dL Est GFR (CKD-EPI)AfAm >90 (>60 ml/min/1.73 sqM) Est GFR (CKD-EPI)NonAf >90 (>60 ml/min/1.73 sqM) Glucose 118 H (74-99) mg/dL Calcium 8.6 (8.4-10.2) mg/dL Total Bilirubin 0.5 (0.2-1.3) mg/dL AST 21 (14-36) U/L ALT 16 (4-34) U/L Alkaline Phosphatase 50 (38-126) U/L Total Protein 7.0 (6.3-8.2) g/dL Albumin 4.2 (3.5-5.0) g/dL Amylase 49 (30-110) U/L Lipase 99 (23-300) U/L Urine Color Urine Appearance (Clear) Urine pH (5.0-8.0) Ur Specific [place] (1.001-1.035) Urine Protein (Negative) Urine Glucose (UA) (Negative) Urine Ketones (Negative) Urine Blood (Negative) Urine Nitrite (Negative) Urine Bilirubin (Negative) Urine Urobilinogen (<2.0) mg/dL Ur Leukocyte Esterase (Negative) Urine RBC (0-5) /hpf Urine WBC (0-5) /hpf Ur Squamous Epith Cells (0-4) /hpf Urine Bacteria (None) /hpf Urine Mucus (None) /hpf Disposition Clinical Impression: Abdominal pain Disposition: HOME SELF-CARE Condition: Good Instructions (If sedation given, give patient instructions): Abdominal Pain (ED) Is patient prescribed a controlled substance at d/c from ED?: No Referrals: Terrell Mckinnon MD [Primary Care Provider] - 1-2 days Time of Disposition: 06:20
[2022-04-24 05:18] LABS: Basophils % (A) 0 %; Eosinophils % (A) 1 %; HGB 13.2 gm/dL (11.4-16.0); Lymphocytes # (A) 1.8 k/uL (1.0-4.8); Lymphocytes % (A) 34 %; MCH 30.7 pg (25.0-35.0); MCHC 34.6 g/dL (31.0-37.0); MCV 88.8 fL (80.0-100.0); Mean Platelet Volume 10.3; Monocytes # (A) 0.4 k/uL (0-1.0); Monocytes % (A) 7 %; Neutrophils # (A) 2.9 k/uL (1.3-7.7); Neutrophils % (A) 55 %; Platelet Count 195 k/uL (150-450); RBC 4.28 m/uL (3.80-5.40); RDW 12.2 % (11.5-15.5); WBC 5.2 k/uL (3.8-10.6)
[2022-04-24 05:24] LABS: Appearance,Urine Cloudy (Clear); Bacteria,Urine Few /hpf; Bilirubin,Urine Negative (Negative); Blood,Urine Large (Negative); Color,Urine Red; Glucose,Urine (UA) Negative (Negative); Ketones,Urine Trace (Negative); Leukocyte Esterase,Urine Moderate (Negative); Mucus,Urine Many /hpf; Nitrite,Urine Negative (Negative); PH, Urine 5.5 (5.0-8.0); Protein,Urine 2+ (Negative); RBC,Urine >182 /hpf (0-5); Specific Gravity,Urine 1.026 (1.001-1.035); Squamous Epithelial Cell,Urine 14 /hpf (0-4); Urobilinogen,Urine <2.0 mg/dL (<2.0); WBC,Urine 28 /hpf (0-5)
[2022-04-24 05:29] LABS: Partial Thromboplastin Time 26.4 sec (22.0-30.0); Prothrombin Time 10.4 sec (9.0-12.0)
[2022-04-24 05:31] LABS: ALT 16 U/L (4-34); AST 21 U/L (14-36); African American GFR (CKD) >90 (>60 ml/min/1.73 sqM); Albumin 4.2 g/dL (3.5-5.0); Alkaline Phosphatase 50 U/L (38-126); Amylase 49 U/L (30-110); Anion Gap 8 mmol/L; Blood Urea Nitrogen 11 mg/dL (7-17); Calcium 8.6 mg/dL (8.4-10.2); Carbon Dioxide 24 mmol/L (22-30); Chloride 108 mmol/L (98-107); Glucose 118 mg/dL (74-99); Lipase 99 U/L (23-300); Non-African American GFR(CKD) >90 (>60 ml/min/1.73 sqM); Potassium 3.9 mmol/L (3.5-5.1); Sodium 140 mmol/L (137-145); Total Bilirubin 0.5 mg/dL (0.2-1.3)
[2022-04-24] MEDS ORDERED: LEVOFLOXACIN 500MG-D5W PMX 500 MG in DEXTROSE/WATER 1 100ML.BAG IVPB STA (05:44)
--- NOTE | 2022-04-24 05:56 | CT ---
EXAMINATION TYPE: CT abdomen pelvis w con DATE OF EXAM: 04/24/2022 COMPARISON: 02/25/2021 HISTORY: vomiting blood hx of gastric ulcers CT DLP: 644.9 mGycm Automated exposure control for dose reduction was used. CONTRAST: Performed with IV Contrast, patient injected with 100 mL of Isovue 300. Images obtained from the diaphragm to the floor the pelvis with the IV contrast. Lung bases are clear. No pleural effusion. Heart size is normal. No pericardial effusion. Liver splee n and stomach pancreas and gallbladder appear intact. The bile ducts are not dilated. Liver is enlarged and measures 21 cm. There is no adrenal mass. Kidneys show satisfactory contrast opacification. No hydronephrosis. Ureter s are not dilated. No retroperitoneal adenopathy. Uterus is anteverted. Bladder distends smoothly. No inguinal hernia. No free fluid in the pelvis. No pelvic mass. Lumbar vertebrae have normal alignment. Posterior element are intact. No compression fracture. The [place] pelvis is intact. The hip joints are intact. Appendix is medial and best seen on the coronal images posteriorly. IMPRESSION: Mild hepatomegaly. No dilated ducts. Normal appendix. No evidence of a gastric mass.
[2022-04-24 06:08] VITALS: RESP 18
[2022-04-24 07:14] VITALS: BP 101/63; PULSE 73
== END 2022-04-24 07:54 | disposition home or self-care (01) ==
LOC: EC 04:39
DX: R10.9 Unspecified abdominal pain (principal); K21.9 Gastro-esophageal reflux disease without esophagitis; F41.9 Anxiety disorder, unspecified; F12.90 Cannabis use, unspecified, uncomplicated; Z88.1 Allergy status to other antibiotic agents; Z87.891 Personal history of nicotine dependence; Z79.899 Other long term (current) drug therapy
CPT/HCPCS: 36415; 80053; 82150; 83690; 85025; 85610; 85730; 81001; 74177; 99284; 96365; 96375 ×3; 96361; J2270; J2405; J1956; C9113; Q9967

== ENCOUNTER → 2023-09-27 | Outpatient (CLI) | payer BC ==
[2023-09-27 18:16] LABS: Basophils # (A) 0.04 X 10*3/uL (0.00-0.10); Basophils % (A) 0.5 %; Eosinophils # (A) 0.12 X 10*3/uL (0.04-0.35); Eosinophils % (A) 1.5 %; HCT 38.1 % (37.2-46.3); HGB 12.6 g/dL (12.0-15.0); Lymphocytes # (A) 2.73 X 10*3/uL (0.90-5.00); Lymphocytes % (A) 35.1 %; MCH 29.7 pg (27.0-32.0); MCHC 33.1 g/dL (32.0-37.0); MCV 89.9 FL (80.0-97.0); Mean Platelet Volume 12.9 FL (9.5-12.2); Monocytes # (A) 0.72 X 10*3/uL (0.20-1.00); Monocytes % (A) 9.3 %; NRBC Per 100 WBC 0 X 10*3/uL (0.00-0.01); Neutrophils # (A) 4.14 X 10*3/uL (1.80-7.70); Neutrophils % (A) 53.2 %; Platelet Count 199 X 10*3/uL (140-440); RBC 4.24 X 10*6/uL (4.10-5.20); RDW 12.9 % (11.5-14.5); WBC 7.78 X 10*3/uL (4.50-10.00)
[2023-09-28 02:34] LABS: Testosterone 18.8 ng/dL (9.01-47.94)
[2023-09-28 03:51] LABS: Follicle Stimulating Hormone 4.1 mIU/mL; Luteinizing Hormone 21.2 mIU/mL
== END | disposition home or self-care (01) ==
LOC: LABWHC1 15:48
PROVIDERS: ATTEND Obstetrics & Gynecology
DX: N92.1 Excessive and frequent menstruation with irregular cycle (principal); F41.9 Anxiety disorder, unspecified
CPT/HCPCS: 36415; 83001; 83002; 84144; 84403; 84443; 85025